=== PATIENT | male | born 1985 | race Caucasian/White ===

== ENCOUNTER 2018-10-17 09:39 | Emergency (ER) | payer MEDICARE ==
[2018-10-17 10:01] VITALS: RESP 18
--- NOTE | 2018-10-17 10:42 | XR ---
Right ankle and right foot HISTORY: Trauma and pain 3 views of the right ankle and 3 views of the right foot are submitted Bone mineralization is reduced which may limit sensitivity. There is soft tissue swelling present. Al ignment and joint spaces are maintained. IMPRESSION: No fracture or dislocation is evident. Follow-up as indicated.
--- NOTE | 2018-10-17 10:43 | ED ---
Lower Extremity Injury HPI - General Chief Complaint: Extremity Injury, Lower Stated Complaint: ankle/foot swelling & bruising Time Seen by Provider: 10/17/18 10:05 Source: patient Mode of arrival: wheelchair Limitations: no limitations - History of Present Illness Initial Comments: 33-year-old male with closed head injury in 1994, wheelchair-bound presenting today for chief complaint of right ankle swelling/bruising and pain. Family states the patient usually transfers weightbearing on his right lower extremity. They state Sunday they noticed swelling and mild bruising of the right ankle. They deny any specific trauma or falls. Patient states the area is mildly tender before meals the patient has a high pain tolerance. Patient since they noticed this injury has not been able to weight-bear and transfer as well as he usually does. Family was concerned there was a fracture and presented to an urgent care facility for evaluation. At the urgent care facility and imaging study was not performed and he was sent to the emergency department for further evaluation. Family denies history of blood clot, or clotting disorder. Patient is able to answer questions denying any chest pain, dyspnea, dyspnea on exertion he states he has some pain in the right ankle to palpation. Remaining review of systems negative. Upon arrival patient appears well no signs of acute distress. At baseline per family. - Related Data Home Medications Medication Instructions Recorded Confirmed Baclofen [Lioresal] 5 mg PO BID 10/17/18 10/17/18 Citalopram Hydrobromide [CeleXA] 10 mg PO HS 10/17/18 10/17/18 L.acidoph,Paracasei, B.lactis 1 cap PO Q48H 10/17/18 10/17/18 [Probiotic] Multivitamins, Thera [Multivitamin 1 tab PO DAILY 10/17/18 10/17/18 (formulary)] lamoTRIgine [LaMICtal] 100 mg PO BID 10/17/18 10/17/18 Allergies Allergy/AdvReac Type Severity Reaction Status Date / Time amoxicillin [From Augmentin] Allergy Nausea & Verified 10/17/18 10:35 Vomiting clavulanic acid Allergy Nausea & Verified 10/17/18 10:35 [From Augmentin] Vomiting sulfamethoxazole Allergy Nausea & Verified 10/17/18 10:35 [From Bactrim] Vomiting trimethoprim [From Bactrim] Allergy Nausea & Verified 10/17/18 10:35 Vomiting Review of Systems ROS Statement: Those systems with pertinent positive or pertinent negative responses have been documented in the HPI. ROS Other: All systems not noted in ROS Statement are negative. Past Medical History Past Medical History: Seizure Disorder Additional Past Medical History / Comment(s): closed head injury 1994 History of Any Multi-Drug Resistant Organisms: None Reported Additional Past Surgical History / Comment(s): Pin in right leg Past Psychological History: Depression Smoking Status: Never smoker Past Alcohol Use History: None Reported Past Drug Use History: None Reported General Exam - General Exam Comments Initial Comments: General: The patient is awake and alert, in no distress, and does not appear acutely ill. Eye: Pupils are equal, round and reactive to light, extra-ocular movements are intact. No nystagmus. There is normal conjunctiva bilaterally. No signs of icterus. Ears, nose, mouth and throat: There are moist mucous membranes and no oral lesions. Neck: The neck is supple, there is no tenderness or JVD. Cardiovascular: There is a regular rate and rhythm. No murmur, rub or gallop is appreciated. Respiratory: Lungs are clear to auscultation, respirations are non-labored, breath sounds are equal. No wheezes, stridor, rales, or rhonchi. Musculoskeletal: Patient is able to range at the ankles bilaterally. Denies tenderness of the left ankle admits tenderness of her ankle. There is no erythema. There is soft tissue swelling at the lateral and medial malleolus. Bruising along the medial aspect of foot. No warmth to palpation. Sensation intact. Radial and DP pulses equal bilaterally 2+. No pain patient of the knee. No pain to palpation of calf negative Homans sign Neurological: A&O x 3. Moving all 4 extremities. slouch posture. appropriate eye contact. Skin: Skin is warm and dry and no rashes or lesions are noted. Psychiatric: Cooperative, appropriate mood & affect, normal judgment. Limitations: no limitations Course Vital Signs 10/17/18 10/17/18 09:56 11:56 Temperature 97.6 F 98.4 F Pulse Rate 85 84 Respiratory 18 18 Rate Blood Pressure 123/84 133/110 O2 Sat by Pulse 92 L 98 Oximetry Medical Decision Making - Medical Decision Making 33-year-old male presenting for right ankle pain. Bruising appears symmetric. Patient does use right foot to transfer. Possible ligamentous injury suspected. Imaging studies revealed no acute osseous injury patient neurovascularly intact. Ultrasound obtained given no distinct injury with swelling of the right lower extremity. No evidence of DVT. At this time feel patient is stable for discharge with using his braces with lateral support using wheelchair and 5 orthopedic surgery. Family is agreeable plan at this time. Patient is discharged. At baseline discussed case with attending Danya who is agreeable with plan. Disposition Clinical Impression: Right ankle swelling, Traumatic ecchymosis of right ankle Disposition: HOME SELF-CARE Condition: Good Instructions (If sedation given, give patient instructions): Ankle Sprain (ED) Additional Instructions: Please use medication as discussed. Please follow-up with orthopedic surgery in the next 2-3 days. Please return to emergency room if the symptoms increase or worsen or for any other concerns, please use braces for transfers. Is patient prescribed a controlled substance at d/c from ED?: No Referrals: Marck Contreras DO [Primary Care Provider] - 1-2 days aJson Ken DO [Medical Doctor] - 1-2 days Time of Disposition: 11:45
--- NOTE | 2018-10-17 11:20 | US ---
EXAMINATION TYPE: US venous doppler duplex LE RT DATE OF EXAM: 10/17/2018 11:10 AM COMPARISON: NONE CLINICAL HISTORY: atraumatic swelling RLE. Right foot swelling and bruising SIDE PERFORMED: Right TECHNIQUE: The lower extremity deep venous system is examined utilizing real time linear array sonog [place] with graded compression, doppler sonography and color-flow sonography. VESSELS IMAGED: External Iliac Vein (EIV) Common Femoral Vein Deep Femoral Vein Greater Saphenous Vein * Femoral Vein Popliteal Vein Small Saphenous Vein * Proximal Calf Veins (* superficial vessels) Mentally challenged pt, moving leg during exam, difficult scan Right Leg: Negative for DVT Grayscale, color doppler, spectral doppler imaging performed of the deep veins of the right lower ext remity. There is normal flow, compressibility, vascular waveforms. IMPRESSION: No sonographic evidence of deep venous thrombosis within the right lower extremity.
[2018-10-17 11:57] VITALS: BP 133/110; PULSE 84; TEMP 98.4
== END 2018-10-17 11:56 | disposition home or self-care (01) ==
LOC: EC 09:39
DX: S90.01XA Contusion of right ankle, initial encounter (principal); Z99.3 Dependence on wheelchair; G40.909 Epilepsy, unspecified, not intractable, without status epilepticus; F32.9 Major depressive disorder, single episode, unspecified; Z79.899 Other long term (current) drug therapy; Z88.0 Allergy status to penicillin; Z88.1 Allergy status to other antibiotic agents; Z88.2 Allergy status to sulfonamides
CPT/HCPCS: 99284

== ENCOUNTER 2020-08-15 09:35 | Inpatient (IN) | payer OTHER, MEDICARE ==
[2020-08-15] MEDS ORDERED: SODIUM CHLORIDE 0.9% 1,000 ML IV STA (09:54)
[2020-08-15] MEDS ORDERED: LORazepam 2 MG/ML INJ IV STA (09:54)
--- NOTE | 2020-08-15 09:58 | ED ---
General Adult HPI - General Chief complaint: Seizure Stated complaint: seizure Time Seen by Provider: 08/15/20 09:45 Source: patient, family, EMS, RN notes reviewed, Caregiver Limitations: language barrier, altered mental status - History of Present Illness Initial comments: Patient is a pleasant 35-year-old male presenting to the emergency department with seizure. Seizure has been occurring more over the past couple of days, patient has partial seizures that have lasted up to an hour or more. Usually right-sided. Patient has vomited some. Patient is able to converse through these. Patient does have history of chronic seizures however this is much more than normal. Patient is on Lamictal. Patient is also on baclofen with increase dosing recently. No fevers or recent illness. Patient does have history of head injury at age 9 however no recent injuries. - Related Data Home Medications Medication Instructions Recorded Confirmed Baclofen [Lioresal] 5 mg PO TID@0730,1400,2200 10/17/18 08/15/20 Citalopram Hydrobromide [CeleXA] 10 mg PO HS 10/17/18 08/15/20 Multivitamins, Thera [Multivitamin 1 tab PO DAILY 10/17/18 08/15/20 (formulary)] lamoTRIgine [LaMICtal] 100 mg PO BID 10/17/18 08/15/20 Ascorbic Acid [Vitamin C] 500 mg PO DAILY 08/15/20 08/15/20 Vitamin B Complex 1 cap PO DAILY 08/15/20 08/15/20 Allergies Allergy/AdvReac Type Severity Reaction Status Date / Time amoxicillin [From Augmentin] Allergy Nausea & Verified 08/15/20 12:18 Vomiting clavulanic acid Allergy Nausea & Verified 08/15/20 12:18 [From Augmentin] Vomiting sulfamethoxazole Allergy Nausea & Verified 08/15/20 12:18 [From Bactrim] Vomiting trimethoprim [From Bactrim] Allergy Nausea & Verified 08/15/20 12:18 Vomiting Review of Systems ROS Statement: Those systems with pertinent positive or pertinent negative responses have been documented in the HPI. ROS Other: All systems not noted in ROS Statement are negative. Constitutional: Denies: fever Eyes: Denies: eye pain ENT: Denies: ear pain Respiratory: Denies: cough, dyspnea Cardiovascular: Denies: chest pain Endocrine: Denies: fatigue Gastrointestinal: Denies: abdominal pain Genitourinary: Denies: dysuria Musculoskeletal: Denies: back pain Skin: Denies: rash Neurological: Denies: headache, weakness Past Medical History Past Medical History: Seizure Disorder Additional Past Medical History / Comment(s): closed head injury 1994 History of Any Multi-Drug Resistant Organisms: None Reported Additional Past Surgical History / Comment(s): Pin in right leg Past Psychological History: Depression Smoking Status: Never smoker Past Alcohol Use History: None Reported Past Drug Use History: None Reported General Exam Limitations: language barrier, altered mental status General appearance: alert, in no apparent distress, other (Patient does have some abnormal movement and spasm of the right upper extremity.) Head exam: Present: atraumatic Eye exam: Present: normal appearance, nystagmus Neck exam: Present: normal inspection. Absent: tenderness, meningismus Respiratory exam: Present: normal lung sounds bilaterally Cardiovascular Exam: Present: regular rate, normal rhythm GI/Abdominal exam: Present: soft. Absent: tenderness Extremities exam: Present: normal inspection. Absent: pedal edema, calf tenderness Neurological exam: Present: alert. Absent: motor sensory deficit Psychiatric exam: Present: normal affect, normal mood Skin exam: Present: normal color Course Vital Signs 08/15/20 08/15/20 08/15/20 09:42 09:49 10:00 Temperature 100.4 F H Pulse Rate 74 Respiratory 20 Rate Blood Pressure 156/110 156/110 156/110 O2 Sat by Pulse 100 98 Oximetry 08/15/20 08/15/20 08/15/20 10:51 11:00 11:51 Temperature 97.7 F Pulse Rate 92 Respiratory 18 18 Rate Blood Pressure 128/117 118/99 O2 Sat by Pulse 97 95 Oximetry 08/15/20 12:00 Temperature Pulse Rate 86 Respiratory 18 Rate Blood Pressure 118/99 O2 Sat by Pulse 96 Oximetry EKG Findings - EKG Comments: EKG Findings:: Normal sinus rhythm at a rate of 97. AK 138. QRS 88. QT 332. QTC 421. Normal axis. Normal QRS. No acute ST change. Medical Decision Making - Medical Decision Making Patient reevaluated and significantly improved. No seizure activity or vomiting since Ativan. Patient and family updated. Case discussed with Dr. cerda twice who will admit. He does want to discuss case with neurology. Case was dis cussed with Dr. Wells, who would like to make the level increased to 100 and the morning and 150 in the evening and he will consult. Also request Lamictal level which was arty added. - Lab Data Result diagrams: 08/15/20 10:16 08/15/20 10:16 Lab Results 08/15/20 08/15/20 08/15/20 Range/Units 10:16 10:16 10:55 WBC 7.0 (3.8-10.6) k/uL RBC 5.03 (4.30-5.90) m/uL Hgb 13.5 (13.0-17.5) gm/dL Hct 40.7 (39.0-53.0) % MCV 81.0 (80.0-100.0) fL MCH 26.9 (25.0-35.0) pg MCHC 33.2 (31.0-37.0) g/dL RDW 13.7 (11.5-15.5) % Plt Count 279 (150-450) k/uL MPV 7.2 Neutrophils % 56 % Lymphocytes % 30 % Monocytes % 5 % Eosinophils % 6 % Basophils % 0 % Neutrophils # 3.9 (1.3-7.7) k/uL Lymphocytes # 2.1 (1.0-4.8) k/uL Monocytes # 0.4 (0-1.0) k/uL Eosinophils # 0.5 (0-0.7) k/uL Basophils # 0.0 (0-0.2) k/uL Sodium 140 (137-145) mmol/L Potassium 4.2 (3.5-5.1) mmol/L Chloride 104 (98-107) mmol/L Carbon Dioxide 27 (22-30) mmol/L Anion Gap 9 mmol/L BUN 13 (9-20) mg/dL Creatinine 0.63 L (0.66-1.25) mg/dL Est GFR (CKD-EPI)AfAm >90 (>60 ml/min/1.73 sqM) Est GFR (CKD-EPI)NonAf >90 (>60 ml/min/1.73 sqM) Glucose 95 (74-99) mg/dL Calcium 9.1 (8.4-10.2) mg/dL Total Bilirubin 0.4 (0.2-1.3) mg/dL AST 30 (17-59) U/L ALT 22 (4-49) U/L Alkaline Phosphatase 51 (38-126) U/L Total Protein 6.6 (6.3-8.2) g/dL Albumin 4.0 (3.5-5.0) g/dL Urine Color Yellow Urine Appearance Clear (Clear) Urine pH 6.5 (5.0-8.0) Ur Specific [place] 1.029 (1.001-1.035) Urine Protein Trace H (Negative) Urine Glucose (UA) Negative (Negative) Urine Ketones Negative (Negative) Urine Blood Negative (Negative) Urine Nitrite Negative (Negative) Urine Bilirubin Negative (Negative) Urine Urobilinogen <2.0 (<2.0) mg/dL Ur Leukocyte Esterase Negative (Negative) Coronavirus (PCR) (Not Detectd) 08/15/20 Range/Units 12:04 WBC (3.8-10.6) k/uL RBC (4.30-5.90) m/uL Hgb (13.0-17.5) gm/dL Hct (39.0-53.0) % MCV (80.0-100.0) fL MCH (25.0-35.0) pg MCHC (31.0-37.0) g/dL RDW (11.5-15.5) % Plt Count (150-450) k/uL MPV Neutrophils % % Lymphocytes % % Monocytes % % Eosinophils % % Basophils % % Neutrophils # (1.3-7.7) k/uL Lymphocytes # (1.0-4.8) k/uL Monocytes # (0-1.0) k/uL Eosinophils # (0-0.7) k/uL Basophils # (0-0.2) k/uL Sodium (137-145) mmol/L Potassium (3.5-5.1) mmol/L Chloride (98-107) mmol/L Carbon Dioxide (22-30) mmol/L Anion Gap mmol/L BUN (9-20) mg/dL Creatinine (0.66-1.25) mg/dL Est GFR (CKD-EPI)AfAm (>60 ml/min/1.73 sqM) Est GFR (CKD-EPI)NonAf (>60 ml/min/1.73 sqM) Glucose (74-99) mg/dL Calcium (8.4-10.2) mg/dL Total Bilirubin (0.2-1.3) mg/dL AST (17-59) U/L ALT (4-49) U/L Alkaline Phosphatase (38-126) U/L Total Protein (6.3-8.2) g/dL Albumin (3.5-5.0) g/dL Urine Color Urine Appearance (Clear) Urine pH (5.0-8.0) Ur Specific [place] (1.001-1.035) Urine Protein (Negative) Urine Glucose (UA) (Negative) Urine Ketones (Negative) Urine Blood (Negative) Urine Nitrite (Negative) Urine Bilirubin (Negative) Urine Urobilinogen (<2.0) mg/dL Ur Leukocyte Esterase (Negative) Coronavirus (PCR) Not Detected (Not Detectd) - Radiology Data Radiology results: report reviewed (Computed tomography scan of the brain shows old infarct. Prior surgery. No acute hemorrhage or shift.), image reviewed (Chest x-ray shows low lung volumes, cannot rule out cardiomegaly or vascular congestion) Disposition Clinical Impression: Status epilepticus Disposition: ADMITTED IP TO THIS HOSP Is patient prescribed a controlled substance at d/c from ED?: No Referrals: Marck Contreras DO [Primary Care Provider] - 1-2 days Decision Time: 13:04
[2020-08-15 10:26] LABS: Basophils % (A) 0 %; Eosinophils # (A) 0.5 k/uL (0-0.7); Eosinophils % (A) 6 %; HCT 40.7 % (39.0-53.0); HGB 13.5 gm/dL (13.0-17.5); Lymphocytes # (A) 2.1 k/uL (1.0-4.8); Lymphocytes % (A) 30 %; MCH 26.9 pg (25.0-35.0); MCHC 33.2 g/dL (31.0-37.0); Mean Platelet Volume 7.2; Monocytes # (A) 0.4 k/uL (0-1.0); Monocytes % (A) 5 %; Neutrophils # (A) 3.9 k/uL (1.3-7.7); Neutrophils % (A) 56 %; Platelet Count 279 k/uL (150-450); RBC 5.03 m/uL (4.30-5.90); RDW 13.7 % (11.5-15.5)
[2020-08-15 10:39] LABS: ALT 22 U/L (4-49); AST 30 U/L (17-59); African American GFR (CKD) >90 (>60 ml/min/1.73 sqM); Alkaline Phosphatase 51 U/L (38-126); Anion Gap 9 mmol/L; Blood Urea Nitrogen 13 mg/dL (9-20); Calcium 9.1 mg/dL (8.4-10.2); Carbon Dioxide 27 mmol/L (22-30); Chloride 104 mmol/L (98-107); Glucose 95 mg/dL (74-99); Non-African American GFR(CKD) >90 (>60 ml/min/1.73 sqM); Potassium 4.2 mmol/L (3.5-5.1); Sodium 140 mmol/L (137-145); Total Bilirubin 0.4 mg/dL (0.2-1.3); Total Protein 6.6 g/dL (6.3-8.2)
[2020-08-15 11:07] LABS: Appearance,Urine Clear (Clear); Bilirubin,Urine Negative (Negative); Blood,Urine Negative (Negative); Color,Urine Yellow; Glucose,Urine (UA) Negative (Negative); Ketones,Urine Negative (Negative); Leukocyte Esterase,Urine Negative (Negative); Nitrite,Urine Negative (Negative); PH, Urine 6.5 (5.0-8.0); Protein,Urine Trace (Negative); Specific Gravity,Urine 1.029 (1.001-1.035); Urobilinogen,Urine <2.0 mg/dL (<2.0)
--- NOTE | 2020-08-15 11:53 | XR ---
EXAMINATION TYPE: XR chest 2V DATE OF EXAM: 08/15/2020 COMPARISON: NONE HISTORY: Seizure. Weakness. TECHNIQUE: Frontal and lateral views of the chest are obtained. FINDINGS: There are markedly reduced lung volumes noted. Heart size mildly enlarged. Mild to moderat e central opacities or vascular congestion. No pleural effusion or pneumothorax. Underlying scoliotic curvature or positioning. IMPRESSION: Low lung volumes and/or poor inspiration. Cardiomegaly with mild to moderate central vas cular congestion may be exaggerated by former.
--- NOTE | 2020-08-15 11:55 | CT ---
EXAMINATION TYPE: CT brain wo con DATE OF EXAM: 08/15/2020 COMPARISON: None. HISTORY: seizure CT DLP: 1217.4 mGycm. Automated Exposure Control for Dose Reduction was Utilized. TECHNIQUE: CT scan of the head is performed without contrast. FINDINGS: There is no acute intracranial hemorrhage or midline shift identified. Mild ventricular a nd sulcal prominence especially for patient's age. Old infarct left basal ganglia extending into the external capsule . Prominent soft tissue density deep right external auditory canal presumed cerumen, correlate clinically. High right parietal paul hole with adjacent extra-axial calcifications. The gl obes are intact and the visualized sinuses are clear. IMPRESSION: No acute intracranial hemorrhage or midline shift is seen. Evidence of prior surgery. Mi ld diffuse cerebral atrophy. 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
[2020-08-15] MEDS ORDERED: NALOXONE 0.4 MG/ML 1 ML VIAL IV PRN (13:05)
[2020-08-15] MEDS ORDERED: LORazepam 2 MG/ML INJ IV PRN (13:07)
[2020-08-15] MEDS: SODIUM CHLORIDE 0.9% 1,000 ML IV SCH (17:55)
[2020-08-15] MEDS ORDERED: FUROSEMIDE 10 MG/ML 2 ML VIAL IV ONE (20:51)
[2020-08-15] MEDS ORDERED: lamoTRIgine 100 MG TAB PO SCH (21:00)
[2020-08-15] MEDS: BACLOFEN 10 MG TAB PO SCH (21:27)
[2020-08-15] MEDS: CITALOPRAM HYDROBROMIDE 10 MG TAB PO SCH (21:28)
--- NOTE | 2020-08-15 23:06 | HP ---
HISTORY AND PHYSICAL DATE OF SERVICE: 08/15/2020. CHIEF COMPLAINT: Seizure disorder. HISTORY OF PRESENT ILLNESS: This 55-year-old gentleman with a past medical history of closed-head injury, history of seizure disorder since 1994, history of depression, being followed by Dr. Marck Contreras in the outpatient setting, saw a neurologist Dr. Calvillo about a week ago. Apparently the dose of gabapentin was also being adjusted by the rehab physician at [facility]. Today the patient was taken to [facility] with complaints of multiple seizures which are occurring more frequently. The patient also had some vomiting. The patient also had history of some shortness of breath and patient came to [facility] and admitted for evaluation and treatment. Evaluation showed normal CBC. Creatinine 0.63 and Covid-19 was negative. A chest x- ray which was done in the ER and which was reviewed personally by me showed suspected aspiration lower limb and cardiomegaly with some vascular congestion was also noted. The patient admitted for further evaluation and treatment. CT scan of the brain was also reviewed personally by me showed no acute intracranial hemorrhage, evidence of previous surgery and mild diffuse cerebral atrophy is also noted with old left-sided infarct. The patient unable to give a coherent history. Most of the history is taken from my discussion with the family at the bedside and as well as discussions with staff and review of the charts. There is no history of any fever, rigors. No history of trauma. PAST MEDICAL HISTORY: History of seizure disorder, close head injury. MEDICATIONS ARE: Lamictal 100 mg b.i.d., vitamin B6, Lioresal. Vitamin C, multivitamins, Celexa. Doses are noted. ALLERGIES: AMOXICILLIN, CLAVULANIC ACID AND BACTRIM. FAMILY HISTORY: No history of heart disease or strokes in the family. Social history, review of systems could not be taken because of the change in mental status. PHYSICAL EXAMINATION: Patient is stuporous. Pulse is 84, blood pressure 118/95, respiration 18, temperature 98 degrees, pulse ox 98% on room air. HEENT: Conjunctivae normal. NECK: No JVD. CARDIOVASCULAR: S1, S2. RESPIRATORY: Breath sounds diminished in the bases. Scattered rhonchi and crackles. ABDOMEN: Soft, obese, nontender. No mass. LEGS: No edema. No swelling. NERVOUS SYSTEM: Higher functions as mentioned earlier. Moves all 4 limbs. Full exam cannot be carried out. SKIN: No ulcers, no rashes and no bleeding. JOINTS: No active deformity arthropathy. LYMPHATICS: No lymph nodes palpable in the neck, axillae or groin. LABS: At this time, CBC within normal limits. Creatinine is 0.63, UA noted. Covid 19 is negative. ASSESSMENT: 1. Seizure disorder and breakthrough seizures. Rule out status epilepticus. 2. History of closed-head injury. 3. History of seizure disorder. 4. History of depression. 5. Rule out congestive heart failure and cardiomegaly. 6. Possible aspiration pneumonia. RECOMMENDATION: This 35-year-old gentleman who presented with multiple complex medical issues, we will monitor the patient closely, continue the current management and symptomatic treatment. Otherwise, at this time, I would recommend Neurology consultation. Also recommend basic cardiac evaluation including 2D echo and as well as BNP. We will limit the fluids and we will also give a single dose of Lasix. Other than that, empiric antibiotics also will be recommended. Prognosis guarded because of multiple complex medical issues. Further recommendations to follow . A copy of dictation being forwarded to Dr. Marck Contreras, who is the primary physician. MMODL / IJN: [id number] /
[2020-08-15] MEDS: AZTREONAM 2 GM in SODIUM CHLORIDE 0.9% 100 ML IVPB SCH (23:57)
[2020-08-16] MEDS: MULTIVITAMINS, THERA 1 EACH TAB PO SCH (07:54)
[2020-08-16] MEDS: AZTREONAM 2 GM in SODIUM CHLORIDE 0.9% 100 ML IVPB SCH (07:54)
[2020-08-16] MEDS: BACLOFEN 10 MG TAB PO SCH ×3 (07:54→21:40)
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
[2020-08-16] MEDS ORDERED: lamoTRIgine 100 MG TAB PO SCH ×2 (09:00)
[2020-08-16] MEDS ORDERED: NON FORMULARY DRUG (Vitamin B Complex [Vitamin B Complex] 1 EACH Capsule) PO SCH (09:00)
[2020-08-16] MEDS: lamoTRIgine 25 MG TAB PO SCH ×2 (09:17→20:19)
--- NOTE | 2020-08-16 10:40 | XR ---
EXAMINATION TYPE: XR chest 1V portable DATE OF EXAM: 08/16/2020 Comparison: 08/15/2020 Clinical History: 35-year-old male CHF Findings: Low lung volumes and crowded vascular markings. Heart is mildly enlarged. No priyank consolidation or s izable effusion on the frontal view. Impression: Borderline to mild cardiomegaly. Hypoventilatory changes with very low lung volumes. Vascular crowdin g could be secondary to the low lung volumes or mild pulmonary vascular congestion. No priyank pulmonar y edema at this time.
--- NOTE | 2020-08-16 11:31 | P.CRDCN ---
History of Present Illness Consult date: 08/16/20 History of present illness: CHIEF COMPLAINT: Congestive heart failure HISTORY OF PRESENT ILLNESS: This is a 35-year-old male with a past medical history significant for closed head injury and seizure disorder. 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 We have been asked to see the patient in consultation for congestive heart failure. Patient examined this morning at the bedside. Mother is present and providing the majority of the patient's history. Patient was brought to the hospital secondary to seizure activity. The patient was having emesis with his seizures which concerned his mother and prompted his visit to the emergency room. The patient currently denies chest pain or pressure. Denies shortness of breath. Patient had a chest x-ray completed revealing low lung volumes and/or poor inspiration. Cardiomegaly with mild to moderate central vascular congestion. BNP was 11. Patient was given a dose of IV lasix per internal medicine yesterday. DIAGNOSTICS: EKG reveals sinus mechanism with no signs of acute ischemia Chest xray Cardiomegaly with mild to moderate central vascular congestion Laboratory data: WBC 7.0. Hemoglobin 13.5. Platelet count 279. Sodium 140. Potassium 4.2. BUN 13. Creatinine 0.63. Magnesium 1.8. BNP 11. Troponin negative 1. Current home cardiac medications include none REVIEW OF SYSTEMS: At the time of my exam: CONSTITUTIONAL: Denies fever or chills. HEENT: Denies blurred vision, vision changes, or eye pain. Denies hemoptysis CARDIOVASCULAR: Denies chest pain, orthopnea, PND or palpitations RESPIRATORY: No shortness of breath. GASTROINTESTINAL: Denies abdominal pain. Denies nausea or vomiting. HEMATOLOGIC: Denies bleeding disorders. GENITOURINARY: Denies any blood in urine. SKIN: Denies pruitis. Denies rash. PHYSICAL EXAM: VITAL SIGNS: Reviewed. GENERAL: Well-developed in no acute distress. HEENT: Head is normocephalic. Pupils are equal, round. Sclerae anicteric. Mucous membranes of the mouth are moist. Neck supple. No JVD or thyromegaly LUNGS: Respirations even and unlabored. Lungs essentially clear to auscultation bilaterally, diminished. No crackles auscultated. HEART: Regular rate and rhythm. S1 and S2 heard. ABDOMEN: Soft. Nondistended. Nontender. EXTREMITIES: Normal range of motion. No clubbing or cyanosis. Peripheral pulses intact. No lower extremity edema NEUROLOGIC: Awake and alert. Oriented x 2. ASSESSMENT: Recurrent seizures Closed head injury Congestive heart failure, ruled out, BNP 11 PLAN: Obtain 2D echo to assess cardiac structure and function No need for diuretics as patient is currently euvolemic Neurology following for seizures Further recommendations pending patient course Nurse practitioner note has been reviewed by physician. Signing provider agrees with the documented findings, assessment, and plan of care. Past Medical History Past Medical History: Seizure Disorder Additional Past Medical History / Comment(s): closed head injury 1994 History of Any Multi-Drug Resistant Organisms: None Reported Additional Past Surgical History / Comment(s): Pin in right leg Past Psychological History: Depression Smoking Status: Never smoker Past Alcohol Use History: None Reported Past Drug Use History: None Reported Medications and Allergies Home Medications Medication Instructions Recorded Confirmed Type Baclofen [Lioresal] 5 mg PO TID@0730,1400,2200 10/17/18 08/15/20 History Citalopram Hydrobromide [CeleXA] 10 mg PO HS 10/17/18 08/15/20 History Multivitamins, Thera [Multivitamin 1 tab PO DAILY 10/17/18 08/15/20 History (formulary)] lamoTRIgine [LaMICtal] 100 mg PO BID 10/17/18 08/15/20 History Ascorbic Acid [Vitamin C] 500 mg PO DAILY 08/15/20 08/15/20 History Vitamin B Complex 1 cap PO DAILY 08/15/20 08/15/20 History Allergies Allergy/AdvReac Type Severity Reaction Status Date / Time amoxicillin [From Augmentin] Allergy Nausea & Verified 08/15/20 12:18 Vomiting clavulanic acid Allergy Nausea & Verified 08/15/20 12:18 [From Augmentin] Vomiting sulfamethoxazole Allergy Nausea & Verified 08/15/20 12:18 [From Bactrim] Vomiting trimethoprim [From Bactrim] Allergy Nausea & Verified 08/15/20 12:18 Vomiting Physical Exam Vitals: Vital Signs Temp Pulse Pulse Pulse Resp BP BP 08/16/20 10:34 08/16/20 05:00 97.5 F L 97 16 120/82 08/15/20 20:00 98.1 F 112 H 16 136/85 08/15/20 17:26 82 18 08/15/20 15:09 98.0 F 84 18 118/90 08/15/20 15:00 80 20 134/90 08/15/20 14:22 98.7 F 82 18 125/87 08/15/20 14:00 84 20 116/88 08/15/20 13:00 86 18 124/82 08/15/20 12:00 86 18 118/99 08/15/20 11:51 97.7 F 92 18 118/99 Pulse Ox 08/16/20 10:34 94 L 08/16/20 05:00 94 L 08/15/20 20:00 93 L 08/15/20 17:26 08/15/20 15:09 99 08/15/20 15:00 08/15/20 14:22 98 08/15/20 14:00 08/15/20 13:00 08/15/20 12:00 96 08/15/20 11:51 95 Intake and Output 08/15/20 08/16/20 08/16/20 22:59 06:59 14:59 Intake Total 800 1270 Output Total 725 400 Balance 75 870 Intake: Intake, IV Titration 600 200 Amount Aztreonam 2 gm In Sodium 100 Chloride 0.9% 100 ml @ 33 .3 mls/hr IVPB Q8HR SARAH Rx#:[id number] Sodium Chloride 0.9% 1, 100 000 ml @ 20 mls/hr IV . Q24H SARAH Rx#:[id number] Sodium Chloride 0.9% 1, 600 000 ml @ 75 mls/hr IV . [id number] STA Rx#:[id number] Oral 200 1070 Output: Urine 725 400 Other: Voiding Method Urinal Urinal # Voids 2 Results 08/15/20 10:16 08/15/20 10:16 Cardiac Enzymes 08/15/20 Range/Units 21:11 Troponin I <0.012 (0.000-0.034) ng/mL Current Medications Generic Name Dose Route Start Last Admin Trade Name Freq PRN Reason Stop Dose Admin Baclofen 5 mg 08/15/20 22:00 08/16/20 07:54 Baclofen 10 Mg Tab PO 5 mg TID@0730,1400,2200 SARAH Administration Citalopram Hydrobromide 10 mg 08/15/20 21:00 08/15/20 21:28 Citalopram Hydrobromide 10 Mg Tab PO 10 mg HS SARAH Administration Sodium Chloride 1,000 mls @ 20 mls/hr 08/15/20 13:15 08/15/20 17:55 Saline 0.9% IV Not Given .Q24H SARAH Aztreonam 2 gm/ Sodium 100 mls @ 33.3 mls/hr 08/16/20 00:00 08/16/20 07:54 Chloride IVPB 33.3 mls/hr Q8HR SARHA Administration Protocol Lamotrigine 25 mg 08/16/20 09:00 08/16/20 09:17 Lamotrigine 25 Mg Tab PO 25 mg BID SARAH Administration Lamotrigine 100 mg 08/16/20 21:00 Lamotrigine 100 Mg Tab PO BID SARAH Lorazepam 1 mg 08/15/20 13:07 Lorazepam 2 Mg/Ml Inj IV Q4H PRN Seizures Multivitamins 1 each 08/16/20 09:00 08/16/20 07:54 Multivitamins, Thera 1 Each Tab PO 1 each DAILY SARAH Administration Naloxone HCl 0.2 mg 08/15/20 13:05 Naloxone 0.4 Mg/Ml 1 Ml Vial IV Q2M PRN Opioid Reversal Intake and Output 08/15/20 08/16/20 08/16/20 22:59 06:59 14:59 Intake Total 800 1270 Output Total 725 400 Balance 75 870 Intake: Intake, IV Titration 600 200 Amount Aztreonam 2 gm In Sodium 100 Chloride 0.9% 100 ml @ 33 .3 mls/hr IVPB Q8HR SARAH Rx#:[id number] Sodium Chloride 0.9% 1, 100 000 ml @ 20 mls/hr IV . Q24H SARAH Rx#:[id number] Sodium Chloride 0.9% 1, 600 000 ml @ 75 mls/hr IV . [id number] STA Rx#:[id number] Oral 200 1070 Output: Urine 725 400 Other: Voiding Method Urinal Urinal # Voids 2 08/15/20 10:16 08/15/20 10:16
[2020-08-16] MEDS: SODIUM CHLORIDE 0.9% 1,000 ML IV SCH (14:04)
--- NOTE | 2020-08-16 14:40 | P.CNPUL ---
History of Present Illness Consult date: 08/16/20 Reason for consult: pneumonia History of present illness: Visit 35-year-old male patient with known history of positive injury at the age of 9. At that time, the patient had a serious injury requiring long-term intubation mechanical ventilation the patient also required a tracheostomy tube insertion. Since then, the patient also developed an epilepsy disorder. The patient was brought in yesterday to the emergency department after having recurrent bouts of seizures starting Sunday which is 2 days ago. The patient was having jerks focally involving the upper and lower extremity without losing complete consciousness. On Sunday, he felt better and on Sunday he started developing ongoing seizure activity and during the process he was seizing around 3-5 minutes at a time and he would stop and the mother noted that he would have had some aspiration. The patient takes Lamictal 100 mg by mouth twice a day and in the emergency department he was given a milligram of Ativan. Currently is awake. He is able to follow some simple commands. He does have a weak cough. No previous aspiration. No previous pneumonias. His chest x-ray is showing smaller lung volumes and there is a suspicion for diaphragmatic weakness/paralysis 9 in the lung volumes are small and the diaphragms are settings high in the chest. Neurology has been evaluating this patient regarding seizure activity. The patient has had definitive disease with other antiepileptic medications the patient was kept on Lamictal for now and the dose was modified. 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 The white cell count was at 7 with a glucose of 95 and a calcium level of 9.1 and the liver function tests were normal, UA was negative and the COVID 19 testing was also negative by PCR. Review of Systems Constitutional: Reports fever, Reports weakness Eyes: denies as per HPI, denies blurred vision, denies bulging eye, denies decreased vision, denies diplopia, denies discharge, denies dry eye, denies irritation, denies itching, denies pain, denies photophobia, denies loss of peripheral vision, denies loss of vision, denies tunnel vision/blind spots Ears: deny: decreased hearing, ear discharge, earache, tinnitus Ears, nose, mouth and throat: Denies headache, Denies sore throat Breasts: absent: as per HPI, gynecomastia Respiratory: Reports as per HPI, Reports cough, Reports dyspnea, Reports excessive sputum Gastrointestinal: Reports as per HPI Genitourinary: Reports as per HPI Musculoskeletal: Reports gait dysfunction, Reports limitation of motion, Reports muscle weakness Musculoskeletal: absent: ankle pain, ankle stiffness, ankle swelling Integumentary: Reports as per HPI Neurological: Reports ataxia, Reports balance difficulties, Reports change in mentation, Reports gait dysfunction, Reports head injury, Reports lack of coordination, Reports motor disturbance, Reports seizures, Reports spasticity, Reports weakness Psychiatric: Reports as per HPI Endocrine: Reports as per HPI, Reports fatigue Hematologic/Lymphatic: Reports as per HPI Allergic/Immunologic: Reports as per HPI Past Medical History Past Medical History: Seizure Disorder Additional Past Medical History / Comment(s): closed head injury 1994, previous history of tracheostomy tube insertion and subsequent removal, obesity with a BMI of 35.2, cognitive impairments and 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 History of Any Multi-Drug Resistant Organisms: None Reported Additional Past Surgical History / Comment(s): Pin in right leg Past Psychological History: Depression Smoking Status: Never smoker Past Alcohol Use History: None Reported Past Drug Use History: None Reported Medications and Allergies Home Medications Medication Instructions Recorded Confirmed Type Baclofen [Lioresal] 5 mg PO TID@0730,1400,2200 10/17/18 08/15/20 History Citalopram Hydrobromide [CeleXA] 10 mg PO HS 10/17/18 08/15/20 History Multivitamins, Thera [Multivitamin 1 tab PO DAILY 10/17/18 08/15/20 History (formulary)] lamoTRIgine [LaMICtal] 100 mg PO BID 10/17/18 08/15/20 History Ascorbic Acid [Vitamin C] 500 mg PO DAILY 08/15/20 08/15/20 History Vitamin B Complex 1 cap PO DAILY 08/15/20 08/15/20 History Allergies Allergy/AdvReac Type Severity Reaction Status Date / Time amoxicillin [From Augmentin] Allergy Nausea & Verified 08/15/20 12:18 Vomiting clavulanic acid Allergy Nausea & Verified 08/15/20 12:18 [From Augmentin] Vomiting sulfamethoxazole Allergy Nausea & Verified 08/15/20 12:18 [From Bactrim] Vomiting trimethoprim [From Bactrim] Allergy Nausea & Verified 08/15/20 12:18 Vomiting Physical Exam Vitals: Vital Signs Temp Pulse Pulse Pulse Resp BP BP 08/16/20 12:06 99 F 52 L 17 112/81 08/16/20 10:34 08/16/20 05:00 97.5 F L 97 16 120/82 08/15/20 20:00 98.1 F 112 H 16 136/85 08/15/20 17:26 82 18 08/15/20 15:09 98.0 F 84 18 118/90 08/15/20 15:00 80 20 134/90 08/15/20 14:22 98.7 F 82 18 125/87 08/15/20 14:00 84 20 116/88 Pulse Ox 08/16/20 12:06 96 08/16/20 10:34 94 L 08/16/20 05:00 94 L 08/15/20 20:00 93 L 08/15/20 17:26 08/15/20 15:09 99 08/15/20 15:00 08/15/20 14:22 98 08/15/20 14:00 Intake and Output 08/15/20 08/16/20 08/16/20 22:59 06:59 14:59 Intake Total 800 1270 Output Total 725 400 Balance 75 870 Intake: Intake, IV Titration 600 200 Amount Aztreonam 2 gm In Sodium 100 Chloride 0.9% 100 ml @ 33 .3 mls/hr IVPB Q8HR [facility] Rx#:[id number] Sodium Chloride 0.9% 1, 100 000 ml @ 20 mls/hr IV . Q24H [facility] Rx#:[id number] Sodium Chloride 0.9% 1, 600 000 ml @ 75 mls/hr IV . [id number] [facility] Rx#:[id number] Oral 200 1070 Output: Urine 725 400 Other: Voiding Method Urinal Urinal # Voids 2 Obese and, comfortable, not in acute respiratory distress, BMI 35.2 Head exam was generally normal. There was no scleral icterus or corneal arcus. Mucous membranes were moist. Neck was supple and without jugular venous distension, thyromegaly, or carotid bruits. Carotids were easily palpable bilaterally. There was no adenopathy. Patient has significant crowding of the posterior oropharynx with a Mallampati class IV Lungs sounds are diminished in lung base bilaterally and the patient's inspiratory efforts are quite weak and the breath sounds are overall diminished throughout the lung hooker. Cardiac exam revealed the PMI to be normally situated and sized. The rhythm was regular and no extrasystoles were noted during several minutes of auscultation. The first and second heart sounds were normal and physiologic splitting of the second heart sound was noted. There were no murmurs, rubs, clicks, or gallops. Abdominal exam revealed normal bowel sounds. The abdomen was soft, non-tender, and without masses, organomegaly, or appreciable enlargement of the abdominal aorta. Examination of the extremities revealed easily palpable radial, femoral and pedal pulses. There was no cyanosis, clubbing or edema. Examination of the skin revealed no evidence of significant rashes, suspicious appearing nevi or other concerning lesions. Neurologically, the patient is awake and alert and the patient has chronic contractures in all 4 extremities and chronic spasticity. Results - Laboratory Findings CBC and BMP: 08/15/20 10:16 08/15/20 10:16 Abnormal lab findings: Abnormal Labs 08/15/20 08/15/20 10:16 10:55 Creatinine 0.63 L Urine Protein Trace H - Diagnostic Findings Chest x-ray: image reviewed Assessment and Plan Plan: 1 aspiration suspected. Nevertheless, the patient has signs of chronic respiratory insufficiency. The chest x-ray shows smaller lung volumes with elevation of the diaphragms bilaterally, and this obviously raises the concern for diaphragmatic paralysis bilaterally and chronic respiratory insufficiency. The patient has a very weak cough. The patient's chest x-ray does not reveal any acute pulmonary infection or pneumonia. The patient was febrile and the patient was covered with antibiotics and the patient was given aztreonam. 2 history of closed head injury 3 history of chronic respiratory failure post closed head injury and the patient required insertion and removal of tracheostomy tube 4 history of epilepsy post closed head injury and the patient was hospitalized for breakthrough seizures 5 obesity. plan Aspiration precautions Swallow evaluation Put the patient on Levaquin 500 milligrams by mouth. Discontinue the aztreonam The choice of the antibiotic was made based on the patient's ALLERGIES. Neurology in regards to ongoing seizure activity. Lamictal was And the dose was modified Monitor the fever pattern Repeat chest x-ray with next 24-48 hours
[2020-08-16] MEDS: LEVOFLOXACIN 500MG-D5W PMX 500 MG in DEXTROSE/WATER 1 100ML.BAG IVPB SCH (15:21)
[2020-08-16] MEDS: lamoTRIgine 100 MG TAB PO SCH (20:19)
[2020-08-16] MEDS: CITALOPRAM HYDROBROMIDE 10 MG TAB PO SCH (20:20)
--- NOTE | 2020-08-16 20:46 | PN ---
PROGRESS NOTE DATE OF SERVICE: 08/16/2020 This 35-year-old gentleman who was admitted with recurrent seizures also had possibly bilateral pneumonia. CHF seems to be unlikely. Cardiology has also seen the patient. The BNP is unremarkable. Pulmonary has also seen the patient. Patient is on empiric antibiotics. Neurology evaluation is also in progress. Patient continues to be unresponsive. Patient has some normal movements. Most of the history is taken from my discussion with the family at the bedside. The patient also has a history of closed- head injury. Past medical history reviewed. Review of systems could not be taken. CURRENT MEDICATIONS: Reviewed. They include Lioresal, Celexa, Lamictal, Levaquin, Ativan. PHYSICAL EXAMINATION: The patient is noncommunicative, nonverbal. Pulse is 52, blood pressure 112/81, respiration 17, temperature 99 degrees, pulse ox 96% on 2 L. HEENT: Conjunctivae normal. NECK: No jugular venous distention. CARDIOVASCULAR SYSTEM: S1, S2 muffled. RESPIRATORY SYSTEM: Breath sounds diminished at the bases. A few scattered rhonchi. No crackles. ABDOMEN: Soft, non-tender. LEGS: No edema. No swelling. NERVOUS SYSTEM: No focal deficit. LABS: CBC and BMP noted. ASSESSMENT: 1. Acute seizure disorder with breakthrough seizures, possibly status epilepticus. 2. Possible bilateral aspiration pneumonia. 3. History of closed-head injury. 4. Seizure disorder. 5. History of depression. 6. Congestive heart failure unlikely. RECOMMENDATIONS AND DISCUSSION: In this 35-year-old gentleman who presented with multiple complex medical issues, we will monitor the patient closely, continue the current medications, continue symptomatic treatment. Otherwise, will continue with empiric antibiotics. Continue the rest of the medications. Neurology has seen the patient and Dr. Crowder has recommended Lamictal dose to be increased to 125 mg twice daily because the patient is highly sensitive to multiple antiepileptic medications. Baclofen 3 times daily will be continued. A 2D echo Doppler has been ordered, but this has not been read yet. As mentioned earlier, overall prognosis is extremely guarded because of multiple complex medical issues. Further recommendations to follow. MMODL / IJN: [id number] /
[2020-08-17] MEDS: PANTOPRAZOLE 40 MG/10 ML VIAL IVP SCH ×3 (05:29→20:56)
[2020-08-17 06:14] LABS: ALT 21 U/L (4-49); AST 30 U/L (17-59); African American GFR (CKD) >90 (>60 ml/min/1.73 sqM); Albumin 3.7 g/dL (3.5-5.0); Albumin/Globulin Ratio 1.5; Alkaline Phosphatase 46 U/L (38-126); Anion Gap 6 mmol/L; Blood Urea Nitrogen 16 mg/dL (9-20); Calcium 9.1 mg/dL (8.4-10.2); Carbon Dioxide 29 mmol/L (22-30); Chloride 102 mmol/L (98-107); Globulin 2.5 g/dL; Glucose 103 mg/dL (74-99); Non-African American GFR(CKD) >90 (>60 ml/min/1.73 sqM); Potassium 3.7 mmol/L (3.5-5.1); Sodium 137 mmol/L (137-145); Total Bilirubin 0.5 mg/dL (0.2-1.3); Total Protein 6.2 g/dL (6.3-8.2)
[2020-08-17 06:42] LABS: HCT 39.6 % (39.0-53.0); HGB 13.2 gm/dL (13.0-17.5); MCH 27.4 pg (25.0-35.0); MCHC 33.3 g/dL (31.0-37.0); MCV 82.3 fL (80.0-100.0); Mean Platelet Volume 7.2; Platelet Count 221 k/uL (150-450); RBC 4.81 m/uL (4.30-5.90); RDW 13.6 % (11.5-15.5); WBC 6.8 k/uL (3.8-10.6)
[2020-08-17] MEDS: MULTIVITAMINS, THERA 1 EACH TAB PO SCH (08:19)
[2020-08-17] MEDS: lamoTRIgine 100 MG TAB PO SCH ×2 (08:24→20:56)
[2020-08-17] MEDS: lamoTRIgine 25 MG TAB PO SCH ×2 (08:24→20:55)
[2020-08-17] MEDS: BACLOFEN 10 MG TAB PO SCH ×3 (08:24→20:55)
--- NOTE | 2020-08-17 11:00 | ECHOF ---
Referral Reason:Stroke MEASUREMENTS -------- HEIGHT: 154.9 cm WEIGHT: 81.7 kg BP: IVSd: 1.2 cm (0.6 - 1.1) LVIDd: 2.2 cm (3.9 - 5.3) LVPWd: 1.2 cm (0.6 - 1.1) IVSs: 1.7 cm LVIDs: 1.4 cm LVPWs: 1.5 cm Ao Diam: 2.9 cm (2.0 - 3.7) AV Cusp: 1.8 cm (1.5 - 2.6) LA Diam: 2.4 cm (2.7 - 3.8) MV EXCURSION: 14.924 mm (> 18.000) MV EF SLOPE: 82 mm/s (70 - 150) EPSS: 0.5 cm MV E Phil: 0.63 m/s MV DecT: 180 ms MV A Phil: 0.67 m/s MV E/A Ratio: 0.94 RAP: 5.00 mmHg RVSP: 14.52 mmHg FINDINGS -------- This was a technically difficult study with suboptimal views. The left ventricular size is normal. There is mild concentric left ventricular hypertrophy. Overa ll left ventricular systolic function is normal with, an EF between 55 - 60 %. The right ventricle is normal in size. The left atrial size is normal. The right atrial size is normal. xx ml of Lumason was utilized for enhancement of images. The aortic valve was not well visualized. The mitral valve is normal. There is trace mitral regurgitation. The tricuspid valve appears structurally normal. Trace tricuspid regurgitation present. Right chris tricular systolic pressure is normal at < 35 mmHg. The pulmonic valve was not well visualized. The aortic root size is normal. IVC Not well visulized. There is no pericardial effusion. CONCLUSIONS -------- 1. The left ventricular size is normal. 2. There is mild concentric left ventricular hypertrophy. 3. Overall left ventricular systolic function is normal with, an EF between 55 - 60 %. 4. There is trace mitral regurgitation. 5. Trace tricuspid regurgitation present. 6. There is no pericardial effusion. MALTED [employer]K MASHER: Ary Rosas [facility]
--- NOTE | 2020-08-17 12:17 | P.PN ---
Subjective Progress Note Date: 08/17/20 This is a very pleasant 35-year-old gentleman who was unfortunate who was admitted to the hospital with recurrent seizure and closed head injury and we consulted to see the patient for heart failure. The patient was seen today. He does not look in any overt congestive heart failure. He underwent an echocardiogram and that revealed normal left ventricular systolic function. He denies any shortness of breath or any chest pain or chest discomfort. Hemodynamically he is a stable except for mild sinus tachycardia which has been intermittent. At this point I would continue the current medical regimen and monitor the heart rate for additional 24 hours. If he continues to be tachycardic I would consider adding a small dose of beta rosalva. Objective - Vital Signs Vital signs: Vital Signs Temp 98.3 F 08/17/20 11:29 Pulse 95 08/17/20 11:29 Resp 20 08/17/20 11:29 BP 114/80 08/17/20 11:29 Pulse Ox 93 L 08/17/20 11:29 Intake & Output 08/16/20 08/17/20 08/17/20 18:59 06:59 18:59 Intake Total 240 1200 Output Total 200 680 Balance 40 520 Intake: Intake, IV Titration 240 240 Amount Sodium Chloride 0.9% 1, 240 240 000 ml @ 20 mls/hr IV . Q24H [facility] Rx#:[id number] Oral 960 Output: Urine 200 650 Emesis 30 Other: Voiding Method Urinal Urinal Urinal # Voids 1 - Constitutional General appearance: Present: no acute distress - Respiratory Respiratory: bilateral: diminished - Cardiovascular Rhythm: regular Heart sounds: normal: S1, S2 - Labs CBC & Chem 7: 08/17/20 05:39 08/17/20 05:39 Labs: Abnormal Lab Results - Last 24 Hours (Table) 08/17/20 Range/Units 05:39 Glucose 103 H (74-99) mg/dL Total Protein 6.2 L (6.3-8.2) g/dL Microbiology - Last 24 Hours (Table) 08/15/20 11:51 Blood Culture - Preliminary Blood No Growth after 24 hours Assessment and Plan Assessment: Assessment #1 recurrent seizure #2 closed head injury #3 sinus tachycardia Plan #1 continue the current medical regimen #2 monitor the heart rate and blood pressure for the next 24 hours
--- NOTE | 2020-08-17 12:56 | P.PN ---
Subjective Progress Note Date: 08/17/20 Visit 35-year-old male patient with known history of positive injury at the age of 9. At that time, the patient had a serious injury requiring long-term intubation mechanical ventilation the patient also required a tracheostomy tube insertion. Since then, the patient also developed an epilepsy disorder. The patient was brought in yesterday to the emergency department after having recurrent bouts of seizures starting Sunday which is 2 days ago. The patient was having jerks focally involving the upper and lower extremity without losing complete consciousness. On Sunday, he felt better and on Sunday he started developing ongoing seizure activity and during the process he was seizing around 3-5 minutes at a time and he would stop and the mother noted that he would have had some aspiration. The patient takes Lamictal 100 mg by mouth twice a day and in the emergency department he was given a milligram of Ativan. Currently is awake. He is able to follow some simple commands. He does have a weak cough. No previous aspiration. No previous pneumonias. His chest x-ray is showing smaller lung volumes and there is a suspicion for diaphragmatic weakness/paralysis 9 in the lung volumes are small and the diaphragms are settings high in the chest. Neurology has been evaluating this patient regarding seizure activity. The patient has had definitive disease with other antiepileptic medications the patient was kept on Lamictal for now and the dose was modified. 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 The white cell count was at 7 with a glucose of 95 and a calcium level of 9.1 and the liver function tests were normal, UA was negative and the COVID 19 testing was also negative by PCR. On 08/17/2020, the patient is slightly more lethargic. I was told that the patient around 3 AM he had a seizure which was another breakthrough seizure and following the seizures the patient had some emesis of brown material. The patient has known gastric distention. No reported aspiration. He is currently on Levaquin. Neurology was made aware of the breakthrough seizures. Currently, he is awake and he is not having any signs of respiratory distress. On room air oxygen. Abdomen is nondistended. Renal function is stable. Creatinine is at 0.68 and the white cell count is at 6.8 with a hemoglobin of 13.2. He is still on Lamictal at a dose of 125 mg twice a day. Noted the patient was also given a dose of Ativan at a time of his seizure 1 mg IV push. Objective - Vital Signs Vital signs: Vital Signs Temp 98.3 F 08/17/20 11:29 Pulse 95 08/17/20 11:29 Resp 20 08/17/20 11:29 BP 114/80 08/17/20 11:29 Pulse Ox 93 L 08/17/20 11:29 Intake & Output 08/16/20 08/17/20 08/17/20 18:59 06:59 18:59 Intake Total 240 1200 Output Total 200 680 Balance 40 520 Intake: Intake, IV Titration 240 240 Amount Sodium Chloride 0.9% 1, 240 240 000 ml @ 20 mls/hr IV . Q24H [facility] Rx#:[id number] Oral 960 Output: Urine 200 650 Emesis 30 Other: Voiding Method Urinal Urinal Urinal # Voids 1 - Exam Obese and, comfortable, not in acute respiratory distress, BMI 35.2 Head exam was generally normal. There was no scleral icterus or corneal arcus. Mucous membranes were moist. Neck was supple and without jugular venous distension, thyromegaly, or carotid bruits. Carotids were easily palpable bilaterally. There was no adenopathy. Patient has significant crowding of the posterior oropharynx with a Mallampati class IV Lungs sounds are diminished in lung base bilaterally and the patient's inspiratory efforts are quite weak and the breath sounds are overall diminished throughout the lung hooker. Cardiac exam revealed the PMI to be normally situated and sized. The rhythm was regular and no extrasystoles were noted during several minutes of auscultation. The first and second heart sounds were normal and physiologic splitting of the second heart sound was noted. There were no murmurs, rubs, clicks, or gallops. Abdominal exam revealed normal bowel sounds. The abdomen was soft, non-tender, and without masses, organomegaly, or appreciable enlargement of the abdominal aorta. Examination of the extremities revealed easily palpable radial, femoral and pedal pulses. There was no cyanosis, clubbing or edema. Examination of the skin revealed no evidence of significant rashes, suspicious appearing nevi or other concerning lesions. Neurologically, the patient is awake and alert and the patient has chronic contractures in all 4 extremities and chronic spasticity. - Labs CBC & Chem 7: 08/17/20 05:39 08/17/20 05:39 Labs: Abnormal Lab Results - Last 24 Hours (Table) 08/17/20 Range/Units 05:39 Glucose 103 H (74-99) mg/dL Total Protein 6.2 L (6.3-8.2) g/dL Microbiology - Last 24 Hours (Table) 08/15/20 11:51 Blood Culture - Preliminary Blood No Growth after 24 hours Assessment and Plan Plan: 1 aspiration suspected. Nevertheless, the patient has signs of chronic respiratory insufficiency. The chest x-ray shows smaller lung volumes with elevation of the diaphragms bilaterally, and this obviously raises the concern for diaphragmatic paralysis bilaterally and chronic respiratory insufficiency. The patient has a very weak cough. The patient's chest x-ray does not reveal any acute pulmonary infection or pneumonia. The patient was febrile and the patient was covered with antibiotics and the patient was given Levaquin 2 history of closed head injury 3 history of chronic respiratory failure post closed head injury and the patient required insertion and removal of tracheostomy tube 4 history of epilepsy post closed head injury and the patient was hospitalized for breakthrough seizures 5 obesity. plan The patient had another breakthrough seizure yesterday. We'll discuss this with neurology in regards to his antiepileptic medication adjustments Aspiration precautions Levaquin 500 milligrams by mouth. The choice of the antibiotic was made based on the patient's ALLERGIES. Ne urology in regards to ongoing seizure activity. Lamictal was And the dose was modifiedAnd the patient is currently taking Lamictal 125 mg by mouth twice a day Monitor the fever pattern Repeat chest x-ray in a.m.
[2020-08-17] MEDS: LEVOFLOXACIN 500MG-D5W PMX 500 MG in DEXTROSE/WATER 1 100ML.BAG IVPB SCH (15:24)
--- NOTE | 2020-08-17 15:25 | P.PN ---
Subjective Progress Note Date: 08/17/20 The patient was seen at bedside and he is accompanied the with his mother. Per the patient's mother he's doing drastically better today compared to his initial presentation. She stated that the patient did not have any seizures today in the morning or afterwards. Per the patient nurse he has not had any seizures today in the morning or afternoon and has been the doing well for her. Per the patient nurse the patient has a emesis and it was coffe ground emesis and and GI is on board. Per the patient mother she stated that the overnight the patient had recurrent episodes of vomiting lasting for a few hours and had an episode of jerking of the right upper extremity lasting for knee 30 minutes. Objective - Vital Signs Vital signs: Vital Signs Temp 98.3 F 08/17/20 11:29 Pulse 95 08/17/20 11:29 Resp 20 08/17/20 11:29 BP 114/80 08/17/20 11:29 Pulse Ox 93 L 08/17/20 11:29 Intake & Output 08/16/20 08/17/20 08/17/20 18:59 06:59 18:59 Intake Total 240 1200 Output Total 200 680 Balance 40 520 Intake: Intake, IV Titration 240 240 Amount Sodium Chloride 0.9% 1, 240 240 000 ml @ 20 mls/hr IV . Q24H [facility] Rx#:[id number] Oral 960 Output: Urine 200 650 Emesis 30 Other: Voiding Method Urinal Urinal Urinal # Voids 1 - Exam GENERAL: The patient is lying in bed and is not in acute distress. NEUROLOGICAL: Limited because of patient cooperation Higher mental function: The patient is awake, alert, oriented to self and place. Patient is able to name objects correctly (such as pen and watch). Patient is following simple commands. No aphasia and no neglect. Cranial nerves: The pupils are round, equal and reactive to light. Visual hooker are full to confrontation throughout. Extraocular were hard to assess because of cooperation. Has right lower facial weakness. Tongue is midline and moved [id number] without any difficulty. Has dysarthria (seems hoarse voice). Motor: Gait is deferred. Able to move all extremities above gravity. He has increase tone over the entire right side. Strength over the left upper extremity is 5/5 while lower extremity hard to assess because of cooperation but had at least antigravity. Cerebellum: Could not assess. Sensation: Sensation is normal to touch throughout. Reflexes (right/left): Brisk over the right upper and lower extremity. Plantars are mute bilaterally. - Labs CBC & Chem 7: 08/17/20 05:39 08/17/20 05:39 Labs: Abnormal Lab Results - Last 24 Hours (Table) 08/17/20 Range/Units 05:39 Glucose 103 H (74-99) mg/dL Total Protein 6.2 L (6.3-8.2) g/dL Microbiology - Last 24 Hours (Table) 08/15/20 11:51 Blood Culture - Preliminary Blood No Growth after 48 hours Assessment and Plan Assessment: This is a 35-year-old gentleman with history of epilepsy that presented to the emergency department on 08/15/2020 for recurring seizures. Recurrent focal motor seizure without loss of conciousness leading to status epilepticus--resolved. 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 Regarding going up on the Lamictal the patient's mother stated that she does not want his medication to be modified or for him to be on any additional anti-epileptic drugs. She feels the patient is doing better currently and in past was on higher Lamictal dose and patient could not tolerate it. An EEG is not warranted since the patient is back to his baseline and he has known history of chronic epilepsy and he had extensive workup in the past. From a neurology perspective the patient needs to follow-up with his neurologist within 1 to 2 weeks upon discharge. Regarding his coffee ground emesis will defer management to primary team. The plan is discussed with the patient's mother and his nurse. No further imaging or workup is needed from a neurology perspective. Will sign off. Please reconsult if needed. Rocco Crowder MD Neuro-Hospitalist Time with Patient: Less than 30
[2020-08-17] MEDS: SODIUM CHLORIDE 0.9% 1,000 ML IV SCH (17:41)
--- NOTE | 2020-08-17 17:55 | PN ---
PROGRESS NOTE DATE OF SERVICE: 08/17/2020 This 35-year-old gentleman admitted with acute seizure disorder and possible status epilepticus also had possibly aspiration pneumonia. The patient is on broad-spectrum IV antibiotics. The patient last night also had probably a breakthrough seizure and was subsequently apparently throwing up with some gastric distention and one episode of hematemesis. Gastroenterology has been consulted. Patient is being closely monitored at this time. Lab-umana, hemoglobin is stable at 13.2 at this time. Cultures are negative. Past medical history reviewed. Review of systems could not be taken. CURRENT MEDICATIONS: Reviewed. They include Lioresal, Celexa, Lamictal, Levaquin, multivitamins, Narcan, Protonix. PHYSICAL EXAMINATION: The patient is conscious but stuporous, noncommunicative. Pulse 95, blood pressure 114/80, respiration 20, temperature 98.3, pulse ox 93% on room air. HEENT: Conjunctivae normal. NECK: No jugular venous distention. CARDIOVASCULAR SYSTEM: S1, S2 muffled. RESPIRATORY SYSTEM: Breath sounds diminished at the bases. A few scattered rhonchi. ABDOMEN: Soft. NERVOUS SYSTEM: Unchanged. LABS: Glucose 103. ASSESSMENT: 1. Acute seizure disorder with breakthrough seizures and status epilepticus. 2. Possible bilateral aspiration pneumonia. 3. Possible upper gastrointestinal bleeding and hematemesis. 4. History of closed-head injury. 5. Seizure disorder history. 6. History of depression. 7. Congestive heart failure unlikely. RECOMMENDATIONS AND DISCUSSION: In this 35-year-old gentleman who presented with multiple complex medical issues, we will monitor the patient closely, continue the current medications, continue symptomatic treatment. A 2D echo with Doppler which was read by Cardiology showed ejection fraction about 55% to 60% and no significant valvular lesions. However, we will obtain a gastroenterology evaluation because of the hematemesis. Continue with the current medications. Continue with current antibiotics. Review of the seizure medications by Neurology. Further recommendations to follow. MMODL / IJN: [id number] /
--- NOTE | 2020-08-17 18:30 | CONS ---
CONSULTATION DATE OF DICTATION: 08/17/2020 REASON FOR CONSULTATION: Coffee-ground emesis. HISTORY OF PRESENT ILLNESS: The patient is a 35-year-old pleasant white male with a history of traumatic brain injury and seizure disorder who was admitted to the hospital after he had multiple seizures that lasted for almost 2 hours. While he was having seizures he had several episodes of nausea and vomiting followed by coffee-ground emesis. He was subsequently brought to the emergency room and admitted to the hospital for further management. Since being in the hospital, according to his mother, he had no further episodes of bleeding. The patient had some altered mental status at the time of admission to the hospital, but slowly he is waking up and is doing much better. On further questioning, the patient reports no abdominal pain. In the ER, he had labs done and CBC was 13.2 g/dL. PAST MEDICAL HISTORY: Significant for seizure disorder, traumatic brain injury in 1994. HOME MEDICATIONS: Baclofen, Celexa, multivitamin, Lamictal, vitamin C and vitamin B. ALLERGIES: AUGMENTIN and BACTRIM. SOCIAL HISTORY: No smoking. No alcohol use. FAMILY HISTORY: Unremarkable. REVIEW OF SYSTEMS: Review of systems could not be obtained, as patient is not answering most of the questions. PHYSICAL EXAMINATION: He appears comfortable. VITAL SIGNS: Stable. Blood pressure is 114/80, pulse rate 95, temperature 98.3. HEENT examination unremarkable. Conjunctivae pink. Sclerae anicteric. Oral cavity no lesions. NECK: No JVD or lymph node enlargement. CHEST: Clear to auscultation. HEART: Regular rate and rhythm. ABDOMEN: Soft. Bowel sounds are positive. No organomegaly. EXTREMITIES: No pedal edema. NEUROLOGIC: He is awake, answering simple questions appropriately. LABS: Labs done at the time of admission to the hospital showed WBC 6.8, hemoglobin 13.2, platelets 221, BUN 6, creatinine 0.68. Rest of the labs are within normal limits. Coronavirus PCR is negative. IMPRESSION: 1. Coffee-ground emesis x2 yesterday. No further bleeding since being in the hospital. Hemoglobin stable at 13.2 g/dL. 2. History of seizure disorder. Patient with multiple seizures yesterday that lasted for 2 hours, during which time he had nausea, vomiting and coffee-ground emesis. Seizures have resolved. Neurology has been consulted. 3. History of closed-head injury in 1994. 4. Mild altered mental status which is gradually improving. RECOMMENDATIONS: 1. Continue with Protonix 40 mg q.12 hours. 2. Monitor CBC daily. 3. No plans for any endoscopic intervention at the present time since no further episodes of bleeding noted. 4. Will follow with you closely. Thank you for this consultation. MMODL / IJN: [id number] /
[2020-08-17] MEDS: CITALOPRAM HYDROBROMIDE 10 MG TAB PO SCH (20:55)
[2020-08-18] MEDS: lamoTRIgine 25 MG TAB PO SCH ×2 (08:44→21:53)
[2020-08-18] MEDS: BACLOFEN 10 MG TAB PO SCH ×3 (08:45→21:53)
[2020-08-18] MEDS: PANTOPRAZOLE 40 MG/10 ML VIAL IVP SCH ×2 (08:45→19:55)
[2020-08-18] MEDS: lamoTRIgine 100 MG TAB PO SCH ×2 (08:45→21:53)
[2020-08-18] MEDS: MULTIVITAMINS, THERA 1 EACH TAB PO SCH (08:45)
--- NOTE | 2020-08-18 09:28 | XR ---
EXAMINATION TYPE: XR chest 1V portable DATE OF EXAM: 08/18/2020 COMPARISON: Chest x-ray 08/16/2020 HISTORY: Shortness of breath TECHNIQUE: Single frontal view of the chest is obtained. FINDINGS: Exam is expiratory and rotated as on prior exam. Patchy basilar density is again noted. Ca rdiac mediastinal silhouette is thought to be stable accounting for differences in technique. There i s no evident pneumothorax or pleural effusion. IMPRESSION: Expiratory rotated exam, suspect basilar atelectasis
--- NOTE | 2020-08-18 09:36 | P.PN ---
Subjective Progress Note Date: 08/18/20 Visit 35-year-old male patient with known history of positive injury at the age of 9. At that time, the patient had a serious injury requiring long-term intubation mechanical ventilation the patient also required a tracheostomy tube insertion. Since then, the patient also developed an epilepsy disorder. The patient was brought in yesterday to the emergency department after having recurrent bouts of seizures starting Sunday which is 2 days ago. The patient was having jerks focally involving the upper and lower extremity without losing complete consciousness. On Sunday, he felt better and on Sunday he started developing ongoing seizure activity and during the process he was seizing around 3-5 minutes at a time and he would stop and the mother noted that he would have had some aspiration. The patient takes Lamictal 100 mg by mouth twice a day and in the emergency department he was given a milligram of Ativan. Currently is awake. He is able to follow some simple commands. He does have a weak cough. No previous aspiration. No previous pneumonias. His chest x-ray is showing smaller lung volumes and there is a suspicion for diaphragmatic weakness/paralysis 9 in the lung volumes are small and the diaphragms are settings high in the chest. Neurology has been evaluating this patient regarding seizure activity. The patient has had definitive disease with other antiepileptic medications the patient was kept on Lamictal for now and the dose was modified. 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 The white cell count was at 7 with a glucose of 95 and a calcium level of 9.1 and the liver function tests were normal, UA was negative and the COVID 19 testing was also negative by PCR. On 08/17/2020, the patient is slightly more lethargic. I was told that the patient around 3 AM he had a seizure which was another breakthrough seizure and following the seizures the patient had some emesis of brown material. The patient has known gastric distention. No reported aspiration. He is currently on Levaquin. Neurology was made aware of the breakthrough seizures. Currently, he is awake and he is not having any signs of respiratory distress. On room air oxygen. Abdomen is nondistended. Renal function is stable. Creatinine is at 0.68 and the white cell count is at 6.8 with a hemoglobin of 13.2. He is still on Lamictal at a dose of 125 mg twice a day. Noted the patient was also given a dose of Ativan at a time of his seizure 1 mg IV push. On 08/18/2020, the patient is being seen for a follow-up. He remains on Lamictal on 25 mg by mouth twice a day regarding his seizures. The patient also has been on Levaquin for questionable aspiration pneumonia. Chest x-ray was done and showed some atelectatic changes in the left lung base. No signs of respiratory distress. Both of 94% room air oxygen. The patient is afebrile for now. No nausea. No vomiting. No diarrhea. No abdominal pain. Patient did not have any seizure activity and he slept well overnight and the mother was at the bedside. The abdomen is nondistended. The patient is awake and alert and he does have some bowel sounds. Objective - Vital Signs Vital signs: Vital Signs Temp 98.4 F 08/18/20 07:13 Pulse 86 08/18/20 07:13 Resp 16 08/18/20 07:13 BP 115/73 08/18/20 07:13 Pulse Ox 94 L 08/18/20 07:13 Intake & Output 08/17/20 08/18/20 08/18/20 18:59 06:59 18:59 Intake Total 340 Output Total 300 Balance 340 -300 Intake: Intake, IV Titration 340 Amount Levofloxacin 500Mg-D5w 100 Pmx 500 mg In Dextrose/ Water 1 100ml.bag @ 100 mls/hr IVPB Q24H [facility] Rx#: [id number] Sodium Chloride 0.9% 1, 240 000 ml @ 20 mls/hr IV . Q24H [facility] Rx#:[id number] Output: Urine 300 Other: Voiding Method Urinal Urinal # Voids 4 - Exam Obese and, comfortable, not in acute respiratory distress, BMI 35.2 Head exam was generally normal. There was no scleral icterus or corneal arcus. Mucous membranes were moist. Neck was supple and without jugular venous distension, thyromegaly, or carotid bruits. Carotids were easily palpable bilaterally. There was no adenopathy. Patient has significant crowding of the posterior oropharynx with a Mallampati class IV Lungs sounds are diminished in lung base bilaterally and the patient's inspiratory efforts are quite weak and the breath sounds are overall diminished throughout the lung hooker. Cardiac exam revealed the PMI to be normally situated and sized. The rhythm was regular and no extrasystoles were noted during several minutes of auscultation. The first and second heart sounds were normal and physiologic splitting of the second heart sound was noted. There were no murmurs, rubs, clicks, or gallops. Abdominal exam revealed normal bowel sounds. The abdomen was soft, non-tender, and without masses, organomegaly, or appreciable enlargement of the abdominal aorta. Examination of the extremities revealed easily palpable radial, femoral and pedal pulses. There was no cyanosis, clubbing or edema. Examination of the skin revealed no evidence of significant rashes, suspicious appearing nevi or other concerning lesions. Neurologically, the patient is awake and alert and the patient has chronic contractures in all 4 extremities and chronic spasticity. - Labs CBC & Chem 7: 08/17/20 05:39 08/17/20 05:39 Labs: Microbiology - Last 24 Hours (Table) 08/15/20 11:51 Blood Culture - Preliminary Blood No Growth after 48 hours Assessment and Plan Plan: 1 aspiration suspected. Nevertheless, the patient has signs of chronic respiratory insufficiency. The chest x-ray shows smaller lung volumes with elevation of the diaphragms bilaterally, and this obviously raises the concern for diaphragmatic paralysis bilaterally and chronic respiratory insufficiency. The patient has a very weak cough. The patient's chest x-ray does not reveal any acute pulmonary infection or pneumonia. The patient is currently afebrile. Chest x-ray showed some limited atelectatic changes in lung bases. He remains on Levaquin I will treat the patient for a total of 5 days. 2 history of closed head injury 3 history of chronic respiratory failure post closed head injury and the patient required insertion and removal of tracheostomy tube 4 history of epilepsy post closed head injury and the patient was hospitalized for breakthrough seizures 5 obesity. plan The patient has had no seizures overnight the patient is currently on Lamictal 125 mg by mouth twice a day Aspiration precautions Levaquin 500 milligrams by mouth. I suggest completing a total of 5 day course The choice of the antibiotic was made based on the patient's ALLERGIES. Neurology in regards to ongoing seizure activity. Lamictal was And the dose was modifiedAnd the patient is currently taking Lamictal 125 mg by mouth twice a day Monitor the fever pattern, currently afebrile Repeat chest x-ray in a.m. from this morning showing some limited atelectatic changes in lung bases Provide diet Continue to follow
--- NOTE | 2020-08-18 10:57 | P.PN ---
Subjective Progress Note Date: 08/18/20 CHIEF COMPLAINT: Congestive heart failure HISTORY OF PRESENT ILLNESS: 08/16/2020 This is a 35-year-old male with a past medical history significant for closed he ad injury and seizure disorder. Patient does not follow with a air pumper. We have been asked to see the patient in consultation for congestive heart failure. Patient examined this morning at the bedside. Mother is present and providing the majority of the patient's history. Patient was brought to the hospital secondary to seizure activity. The patient was having emesis with his seizures which concerned his mother and prompted his visit to the emergency room. The patient currently denies chest pain or pressure. Denies shortness of breath. Patient had a chest x-ray completed revealing low lung volumes and/or poor inspiration. Cardiomegaly with mild to moderate central vascular congestion. BNP was 11. Patient was given a dose of IV lasix per internal medicine yesterday. 08/18/2020 Patient examined this morning at the bedside. Patient's mother is present. She reports the patient had a good night and has not had any further episodes of vomiting or seizure activity. Patient's heart rate is in 80s to 90s. PHYSICAL EXAM: VITAL SIGNS: Reviewed. GENERAL: Well-developed in no acute distress. HEENT: Head is normocephalic. Pupils are equal, round. Sclerae anicteric. Mucous membranes of the mouth are moist. Neck supple. No JVD or thyromegaly LUNGS: Respirations even and unlabored. Lungs essentially clear to auscultation bilaterally, diminished. No crackles auscultated. HEART: Regular rate and rhythm. S1 and S2 heard. ABDOMEN: Soft. Nondistended. Nontender. EXTREMITIES: Normal range of motion. No clubbing or cyanosis. Peripheral pulses intact. No lower extremity edema NEUROLOGIC: Awake and alert. Oriented x 2. ASSESSMENT: Recurrent seizures Closed head injury Congestive heart failure, ruled out, BNP 11 PLAN: Patient is currently stable from a cardiac perspective. Patient's heart rate has improved. No need to add beta rosalva therapy. We will sign off. Please reconsult as needed. Nurse practitioner note has been reviewed by physician. Signing provider agrees with the documented findings, assessment, and plan of care. Objective - Vital Signs Vital signs: Vital Signs Temp 98.4 F 08/18/20 07:13 Pulse 86 08/18/20 07:13 Resp 16 08/18/20 07:13 BP 115/73 08/18/20 07:13 Pulse Ox 94 L 08/18/20 07:13 Intake & Output 08/17/20 08/18/20 08/18/20 18:59 06:59 18:59 Intake Total 340 Output Total 300 Balance 340 -300 Intake: Intake, IV Titration 340 Amount Levofloxacin 500Mg-D5w 100 Pmx 500 mg In Dextrose/ Water 1 100ml.bag @ 100 mls/hr IVPB Q24H [facility] Rx#: [id number] Sodium Chloride 0.9% 1, 240 000 ml @ 20 mls/hr IV . Q24H [facility] Rx#:[id number] Output: Urine 300 Other: Voiding Method Urinal Urinal Urinal # Voids 4 - Labs CBC & Chem 7: 08/17/20 05:39 08/17/20 05:39 Labs: Microbiology - Last 24 Hours (Table) 08/15/20 11:51 Blood Culture - Preliminary Blood No Growth after 48 hours
[2020-08-18 11:23] LABS: HCT 38.7 % (39.0-53.0); HGB 12.7 gm/dL (13.0-17.5); MCH 26.8 pg (25.0-35.0); MCHC 32.8 g/dL (31.0-37.0); MCV 81.7 fL (80.0-100.0); Mean Platelet Volume 7.3; Platelet Count 255 k/uL (150-450); RBC 4.74 m/uL (4.30-5.90); RDW 13.9 % (11.5-15.5); WBC 5.8 k/uL (3.8-10.6)
--- NOTE | 2020-08-18 14:55 | FL ---
EXAMINATION TYPE: FL barium swallow DATE OF EXAM: 08/18/2020 COMPARISON: None HISTORY: Possible aspiration with vomiting after eating and seizures TECHNIQUE: A single contrast esophagram study is performed. Exam is very limited due to patient's ph ysical condition despite good level of cooperation. FINDINGS: Fluoroscopy time: 52 seconds. Images: 11 Esophagus extends to the gastroesophageal junction. With swallowing this appears slightly patulous wi thout intraluminal or extrarenal defects. A couple of small tertiary contractions may be present duri ng the exam. Reflux was not elicited. Small hiatal hernia may be present. IMPRESSIONS: 1. No aspiration was demonstrated during this exam. 2. Mild presbyesophagus. 3. Small self reducing sliding type hiatal hernia.
[2020-08-18] MEDS: LEVOFLOXACIN 500MG-D5W PMX 500 MG in DEXTROSE/WATER 1 100ML.BAG IVPB SCH (15:11)
[2020-08-18] MEDS: SODIUM CHLORIDE 0.9% 1,000 ML IV SCH (15:57)
--- NOTE | 2020-08-18 16:24 | P.PN ---
Subjective Progress Note Date: 08/18/20 Principal diagnosis: Coffee-ground emesis This is a pleasant 35-year-old male patient with a history of traumatic brain injury and seizure disorder was submitted to the hospital after he had multiple seizures lasting for approximately 2 hours. During that time he was noted to h ave several episodes of emesis, some noted to be coffee-ground in color. Since coming to the hospital he's had no further episodes of vomiting. He reports no abdominal pain, nausea, or vomiting. Speech pathology saw him yesterday for a swallowing evaluation, did not know any signs of aspiration but recommended considering esophagram. His mother remains at the bedside and reports that he has also had no further seizures. Objective - Vital Signs Vital signs: Vital Signs Temp 98.4 F 08/18/20 07:13 Pulse 86 08/18/20 07:13 Resp 16 08/18/20 07:13 BP 115/73 08/18/20 07:13 Pulse Ox 94 L 08/18/20 07:13 Intake & Output 08/17/20 08/18/20 08/18/20 18:59 06:59 18:59 Intake Total 340 Output Total 300 Balance 340 -300 Intake: Intake, IV Titration 340 Amount Levofloxacin 500Mg-D5w 100 Pmx 500 mg In Dextrose/ Water 1 100ml.bag @ 100 mls/hr IVPB Q24H [facility] Rx#: [id number] Sodium Chloride 0.9% 1, 240 000 ml @ 20 mls/hr IV . Q24H [facility] Rx#:[id number] Output: Urine 300 Other: Voiding Method Urinal Urinal Urinal # Voids 4 - Exam General appearance: The patient is alert, nonverbal, appears in no acute distress. HET: Head is normocephalic and atraumatic. Conjunctiva pink. Sclera anicteric. Neck: Supple without lymphadenopathy. Abdomen: Soft, nontender, nondistended with bowel sounds. No guarding or rigidity. Extremities: Normal skin color and turgor. No pedal edema Skin: No rashes, no jaundice Neurological: History of traumatic brain injury. Nonverbal. - Labs CBC & Chem 7: 08/18/20 10:45 08/17/20 05:39 Labs: Microbiology - Last 24 Hours (Table) 08/15/20 11:51 Blood Culture - Preliminary Blood No Growth after 48 hours Assessment and Plan (1) Coffee ground emesis Narrative/Plan: This is a 35-year-old male patient with a history of traumatic brain injury who had multiple seizures followed by episodes of vomiting, with coffee-ground emesis noted. He has had no further bleeding since being in the hospital. Hemoglobin was stable on admission at 13.2 and remained stable at 12.7. Current Visit: Yes Status: Acute Code(s): K92.0 - HEMATEMESIS SNOMED Code(s): 87857855 (2) Status epilepticus Narrative/Plan: History of seizure disorder. Patient with multiple seizures yesterday that reportedly lasted for 2 hours, during which time he had nausea and vomiting of coffee-ground emesis. Seizures have resolved. Neurology is consulted and managing. Current Visit: Yes Status: Acute Code(s): G40.901 - EPILEPSY, UNSP, NOT INTRACTABLE, WITH STATUS EPILEPTICUS SNOMED Code(s): 980877614 (3) History of closed head injury Current Visit: Yes Status: Acute Code(s): Z87.820 - PERSONAL HISTORY OF TRAUMATIC BRAIN INJURY SNOMED Code(s): 87540450278840 Plan: 1. Supportive care 2. Protonix 40 mg twice a day 3. CBC ordered and reviewed 4. No plans for endoscopic intervention at the present time since no further episodes of bleeding noted. 5. Speech pathology consult reviewed, will order modified barium swallow 6. We will continue to follow with you closely. Thank you for this consultation Dr. Mai Encarnacion I agree with the dictator's note, documented as a scribe by Maria Elena Baldwin.
--- NOTE | 2020-08-18 18:03 | PN ---
PROGRESS NOTE DATE OF SERVICE: 08/18/2020 This 35-year-old gentleman admitted with seizure disorder also had possible aspiration pneumonia. Patient also had evidence of coffee-ground emesis; however, hemoglobin is rather stable. Barium swallow x-ray was recommended by Gastroenterology which showed no aspirations and mild depressed esophagus and small self-reducing sliding-type hiatal hernia. The patient continues to be minimally responsive, conscious. Past medical history reviewed. PHYSICAL EXAMINATION: Pulse is 90, blood pressure is 110/73, respirations 16, temperature 98 degrees, pulse ox 94% on room air. HEENT: Conjunctivae normal. NECK: No jugular venous distention. CARDIOVASCULAR SYSTEM: S1, S2 muffled. RESPIRATORY SYSTEM: Breath sounds diminished at the bases. A few scattered rhonchi. ABDOMEN: Soft. NERVOUS SYSTEM: No focal deficit. LABS: Hemoglobin 12.7. ASSESSMENT: 1. Acute seizure disorder with breakthrough seizures and status epilepticus. 2. Possible bilateral aspiration pneumonia. 3. Possible upper gastrointestinal bleeding with hematemesis, possible gastritis. 4. History of closed-head injury. 5. Seizure disorder history. 6. History of depression. 7. Congestive heart failure unlikely. RECOMMENDATIONS AND DISCUSSION: I recommend to continue current medications, continue with symptomatic treatment. Will continue the antibiotics. Antiepileptic medication per Neurology. Continue with symptomatic treatment. Once the patient is improved, the patient might be able to be discharged home. Follow up with Dr. Contreras closely in the outpatient setting. TAJ / SHA: [id number] /
[2020-08-18] MEDS ORDERED: ONDANSETRON 4 MG/2 ML VIAL IVP PRN (20:40)
[2020-08-18] MEDS: CITALOPRAM HYDROBROMIDE 10 MG TAB PO SCH (21:53)
[2020-08-19] MEDS: BACLOFEN 10 MG TAB PO SCH ×3 (08:23→21:00)
[2020-08-19] MEDS: lamoTRIgine 25 MG TAB PO SCH ×2 (08:23→20:55)
[2020-08-19] MEDS: PANTOPRAZOLE 40 MG/10 ML VIAL IVP SCH ×2 (08:23→20:56)
[2020-08-19] MEDS: lamoTRIgine 100 MG TAB PO SCH ×2 (08:23→20:55)
[2020-08-19] MEDS: MULTIVITAMINS, THERA 1 EACH TAB PO SCH (08:25)
--- NOTE | 2020-08-19 10:38 | P.PN ---
Subjective Progress Note Date: 08/19/20 Principal diagnosis: Status epilepticus 35-year-old male patient with known history of positive injury at the age of 9. At that time, the patient had a serious injury requiring long-term intubation mechanical ventilation the patient also required a tracheostomy tube insertion. Since then, the patient also developed an epilepsy disorder. The patient was brought in yesterday to the emergency department after having recurrent bouts of seizures starting Sunday which is 2 days ago. The patient was having jerks focally involving the upper and lower extremity without losing complete consciousness. On Sunday, he felt better and on Sunday he started developing ongoing seizure activity and during the process he was seizing around 3-5 minutes at a time and he would stop and the mother noted that he would have had some aspiration. The patient takes Lamictal 100 mg by mouth twice a day and in the emergency department he was given a milligram of Ativan. Currently is catherine ke. He is able to follow some simple commands. He does have a weak cough. No previous aspiration. No previous pneumonias. His chest x-ray is showing smaller lung volumes and there is a suspicion for diaphragmatic weakness/paralysis 9 in the lung volumes are small and the diaphragms are settings high in the chest. Neurology has been evaluating this patient regarding seizure activity. The patient has had definitive disease with other antiepileptic medications the patient was kept on Lamictal for now and the dose was modified. 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 The white cell count was at 7 with a glucose of 95 and a calcium level of 9.1 and the liver function tests were normal, UA was negative and the COVID 19 testing was also negative by PCR. On 08/17/2020, the patient is slightly more lethargic. I was told that the patient around 3 AM he had a seizure which was another breakthrough seizure and following the seizures the patient had some emesis of brown material. The patient has known gastric distention. No reported aspiration. He is currently on Levaquin. Neurology was made aware of the breakthrough seizures. Currently, he is awake and he is not having any signs of respiratory distress. On room air oxygen. Abdomen is nondistended. Renal function is stable. Creatinine is at 0.68 and the white cell count is at 6.8 with a hemoglobin of 13.2. He is still on Lamictal at a dose of 125 mg twice a day. Noted the patient was also given a dose of Ativan at a time of his seizure 1 mg IV push. On 08/18/2020, the patient is being seen for a follow-up. He remains on Lamictal on 25 mg by mouth twice a day regarding his seizures. The patient also has been on Levaquin for questionable aspiration pneumonia. Chest x-ray was done and showed some atelectatic changes in the left lung base. No signs of respiratory distress. Both of 94% room air oxygen. The patient is afebrile for now. No nausea. No vomiting. No diarrhea. No abdominal pain. Patient did not have any seizure activity and he slept well overnight and the mother was at the bedside. The abdomen is nondistended. The patient is awake and alert and he does have some bowel sounds. The patient is seen today 08/19/2020 in follow-up on the regular medical floor. His mom is at the bedside. He has not had any seizures in the past 24 hours. He remains on Lamictal. He is currently resting quite comfortably in bed. Maintaining O2 saturations in the 90s on room air. He did undergo a swallowing evaluation that revealed no evidence of aspiration, mild presbyesophagus, small self reducing sliding hiatal hernia. He was however given liquids that he seems to spit out more than choke on according to nursing staff. He remains nothing by mouth currently. GI services are on the case. Blood cultures reveal no growth. Labs are pending today. He remains on antibiotics in the form of Levaquin. Objective - Vital Signs Vital signs: Vital Signs Temp 98.5 F 08/19/20 04:19 Pulse 104 H 08/19/20 04:19 Resp 20 08/19/20 04:19 BP 128/75 08/19/20 04:19 Pulse Ox 95 08/19/20 04:19 Intake & Output 08/18/20 08/19/20 08/19/20 18:59 06:59 18:59 Intake Total 340 240 Output Total 300 Balance 40 240 Intake: Intake, IV Titration 340 240 Amount Levofloxacin 500Mg-D5w 100 Pmx 500 mg In Dextrose/ Water 1 100ml.bag @ 100 mls/hr IVPB Q24H [facility] Rx#: [id number] Sodium Chloride 0.9% 1, 240 240 000 ml @ 20 mls/hr IV . Q24H [facility] Rx#:[id number] Output: Urine 300 Other: Voiding Method Urinal Urinal Urinal # Voids 2 # Emeses 2 - Exam Obese and, comfortable, 35-year-old gentleman, on room air, not in acute respiratory distress, BMI 35.2 Head exam was generally normal. There was no scleral icterus or corneal arcus. Mucous membranes were moist. Neck was supple and without jugular venous distension, thyromegaly, or carotid bruits. Carotids were easily palpable bilaterally. There was no adenopathy. Patient has significant crowding of the posterior oropharynx with a Mallampati class IV Lungs sounds are diminished in lung base bilaterally and the patient's inspiratory efforts are quite weak and the breath sounds are overall diminished throughout the lung hooker. Cardiac exam revealed the PMI to be normally situated and sized. The rhythm was regular and no extrasystoles were noted during several minutes of auscultation. The first and second heart sounds were normal and physiologic splitting of the second heart sound was noted. There were no murmurs, rubs, clicks, or gallops. Abdominal exam revealed normal bowel sounds. The abdomen was soft, non-tender, and without masses, organomegaly, or appreciable enlargement of the abdominal ao rta. Examination of the extremities revealed easily palpable radial, femoral and pedal pulses. There was no cyanosis, clubbing or edema. Examination of the skin revealed no evidence of significant rashes, suspicious appearing nevi or other concerning lesions. Neurologically, the patient is awake and alert and the patient has chronic contractures in all 4 extremities and chronic spasticity. - Labs CBC & Chem 7: 08/18/20 10:45 08/17/20 05:39 Labs: Abnormal Lab Results - Last 24 Hours (Table) 08/18/20 Range/Units 10:45 Hgb 12.7 L (13.0-17.5) gm/dL Hct 38.7 L (39.0-53.0) % Microbiology - Last 24 Hours (Table) 08/15/20 11:51 Blood Culture - Preliminary Blood No Growth after 72 hours Assessment and Plan Assessment: 1 aspiration suspected. Nevertheless, the patient has signs of chronic respiratory insufficiency. The chest x-ray shows smaller lung volumes with elevation of the diaphragms bilaterally, and this obviously raises the concern for diaphragmatic paralysis bilaterally and chronic respiratory insufficiency. The patient has a very weak cough. The patient's chest x-ray does not reveal any acute pulmonary infection or pneumonia. The patient is currently afebrile. Chest x-ray showed some limited atelectatic changes in lung bases. He remains on Levaquin I will treat the patient for a total of 5 days. 2 history of closed head injury 3 history of chronic respiratory failure post closed head injury and the patient required insertion and removal of tracheostomy tube 4 history of epilepsy post closed head injury and the patient was hospitalized for breakthrough seizures 5 obesity. Plan The patient was seen and evaluated by Dr. Aguirre Barium swallow results reviewed, no aspiration GI services are on the case Complete course of Levaquin Remains stable on room air No seizures in the past 24 hours Will continue to follow I, the cosigning physician, performed a history & physical examination of the patient. Lungs sounds are clear, diminished. Maintaining good O2 saturations in the 90s on room air. I discussed the assessment and plan of care with my nurse practitioner, Nataly Venegas. I attest to the above note as dictated by her.
[2020-08-19] MEDS: LEVOFLOXACIN 500MG-D5W PMX 500 MG in DEXTROSE/WATER 1 100ML.BAG IVPB SCH (14:51)
--- NOTE | 2020-08-19 16:14 | P.PN ---
Subjective Progress Note Date: 08/19/20 This is a 35-year-old male who was recently admitted with seizure disorder possible aspiration pneumonia and is being closely monitored. Patient was also noted to have evidence of coffee-ground emesis per mother and hemoglobin has remained stable. Barium swallow showed no aspiration and mild depressed e sophagus and a small self reducing sliding type hiatal hernia. Patient is alert and oriented 1-2 and follow simple commands. Mother Diamante is at the bedside. Mother is concerned as he continues to have vomiting noted. Abdomen on exam is nontender with no guarding or rigidity noted. No reports of chest pain. Patient is afebrile. Objective - Vital Signs Vital signs: Vital Signs Temp 98.5 F 08/19/20 04:19 Pulse 104 H 08/19/20 04:19 Resp 20 08/19/20 04:19 BP 128/75 08/19/20 04:19 Pulse Ox 95 08/19/20 04:19 Intake & Output 08/18/20 08/19/20 08/19/20 18:59 06:59 18:59 Intake Total 340 240 Output Total 300 Balance 40 240 Intake: Intake, IV Titration 340 240 Amount Levofloxacin 500Mg-D5w 100 Pmx 500 mg In Dextrose/ Water 1 100ml.bag @ 100 mls/hr IVPB Q24H [facility] Rx#: [id number] Sodium Chloride 0.9% 1, 240 240 000 ml @ 20 mls/hr IV . Q24H [facility] Rx#:[id number] Output: Urine 300 Other: Voiding Method Urinal Urinal Urinal # Voids 2 # Emeses 2 - Exam Gen: This is a 35-year-old male lying in bed awake, alert and oriented 1-2 baseline, well-developed, well-nourished. Temp is 98.5F, pulse is 104, respirations are 20, blood pressure is 128/75, oxygen saturation is 95% on room air. HEENT: Head is atraumatic, normocephalic. Pupils equal, round. Sclerae is anicteric. NECK: Supple. No JVD. No lymphadenopathy. No thyromegaly. LUNGS: Diminished breath sounds bilaterally with a few scattered rhonchi noted. No intercostal retractions. HEART: S1, S2 are muffled ABDOMEN: Soft. Bowel sounds are present. No masses. No tenderness. EXTREMITIES: No pedal edema. No calf tenderness. NEUROLOGICAL: Patient is awake, alert and oriented x3. Cranial nerves 2 through 12 are grossly intact. - Labs CBC & Chem 7: 08/18/20 10:45 08/17/20 05:39 Labs: Microbiology - Last 24 Hours (Table) 08/15/20 11:51 Blood Culture - Preliminary Blood No Growth after 72 hours Assessment and Plan Assessment: Acute seizure disorder with breakthrough seizures and status epilepticus Possible bilateral aspiration pneumonia Possible upper gastrointestinal bleeding with hematemesis, possible gastritis History of closed head injury History of seizure disorder History of depression Congestive heart failure ruled out Recommendations and discussion: Recommend to continue with current medications, management, and symptomatic treatment. Multiple medical consultations following including pulmonary, cardiology, and GI along with neurology. No further seizure-like activity noted. Patient per mother at the bedside continues to spit food out although underwent a barium study which was negative for aspiration. GI not planning on any surgical or endoscopic intervention. To continue with seizure precautions and antiepileptic medications. Will repeat a.m. labs and monitor closely. Due to multiple complex medical issues, prognosis is guarded. Further recommendations to follow. Possible discharge in 24 hours.
--- NOTE | 2020-08-19 16:17 | P.PN ---
Subjective Progress Note Date: 08/19/20 Principal diagnosis: Coffee-ground emesis This is a pleasant 35-year-old male patient with a history of traumatic brain injury and seizure disorder was submitted to the hospital after he had multiple seizures lasting for approximately 2 hours. During that time he was noted to h ave several episodes of emesis, some noted to be coffee-ground in color. Speech pathology saw him for a swallowing evaluation, did not know any signs of aspiration but recommended considering esophagram. Not applied barium swallow completed yesterday that showed no aspiration demonstrated, mild pr esbyesophagus, small self reducing sliding type hiatal hernia. Nursing reported that the patient had clear liquids yesterday evening and did have some regurgitation-emesis following. The patient's mother states that this is a common thing for the patient. He has been having some regurgitation after eating. Denies any abdominal pain. Objective - Vital Signs Vital signs: Vital Signs Temp 98.4 F 08/19/20 12:48 Pulse 79 08/19/20 12:48 Resp 17 08/19/20 12:48 BP 123/83 08/19/20 12:48 Pulse Ox 93 L 08/19/20 12:48 Intake & Output 08/18/20 08/19/20 08/19/20 18:59 06:59 18:59 Intake Total 340 240 Output Total 300 Balance 40 240 Intake: Intake, IV Titration 340 240 Amount Levofloxacin 500Mg-D5w 100 Pmx 500 mg In Dextrose/ Water 1 100ml.bag @ 100 mls/hr IVPB Q24H [facility] Rx#: [id number] Sodium Chloride 0.9% 1, 240 240 000 ml @ 20 mls/hr IV . Q24H [facility] Rx#:[id number] Output: Urine 300 Other: Voiding Method Urinal Urinal Urinal # Voids 2 # Emeses 2 - Exam General appearance: The patient is alert, nonverbal, appears in no acute dis tress. HET: Head is normocephalic and atraumatic. Conjunctiva pink. Sclera anicteric. Neck: Supple without lymphadenopathy. Abdomen: Soft, nontender, nondistended with bowel sounds. No guarding or rigidity. Extremities: Normal skin color and turgor. No pedal edema Skin: No rashes, no jaundice Neurological: History of traumatic brain injury. Nonverbal. - Labs CBC & Chem 7: 08/18/20 10:45 08/17/20 05:39 Labs: Microbiology - Last 24 Hours (Table) 08/15/20 11:51 Blood Culture - Preliminary Blood No Growth after 96 hours Assessment and Plan (1) Coffee ground emesis Narrative/Plan: This is a 35-year-old male patient with a history of traumatic brain injury who had multiple seizures followed by episodes of vomiting, with coffee-ground emesi s noted. He has had no further bleeding since being in the hospital. Hemoglobin was stable on admission at 13.2 and remained stable at 12.7. Patient has had no further coffee-ground emesis. He is having some episodes of regurgitation after eating and clear liquids. A modified barium swallow was ordered and reviewed showing no aspiration, mild presbyesophagus and a small self reducing sliding hiatal hernia. Current Visit: Yes Status: Acute Code(s): K92.0 - HEMATEMESIS SNOMED Code(s): 91560578 (2) Status epilepticus Narrative/Plan: History of seizure disorder. Patient with multiple seizures yesterday that reportedly lasted for 2 hours, during which time he had nausea and vomiting of coffee-ground emesis. Seizures have resolved. Neurology is consulted and managing. Current Visit: Yes Status: Acute Code(s): G40.901 - EPILEPSY, UNSP, NOT INTRACTABLE, WITH STATUS EPILEPTICUS SNOMED Code(s): 605371299 (3) History of closed head injury Current Visit: Yes Status: Acute Code(s): Z87.820 - PERSONAL HISTORY OF TRAUMATIC BRAIN INJURY SNOMED Code(s): 35735493738498 Plan: 1. Supportive care 2. Protonix 40 mg twice a day 3. Upper endoscopy offered and discussed with patient and mother. The patient's mother is declining at this time and feels that it would be too invasive for her son. 4. Modified barium swallow with GI series ordered 5. Full liquid diet 6. We will continue to follow with you closely. Thank you for this consultation Dr. Mai Encarnacion I agree with the dictator's note, documented as a scribe by Maria Elena Baldwin.
[2020-08-19] MEDS: SODIUM CHLORIDE 0.9% 1,000 ML IV SCH (18:32)
[2020-08-19] MEDS: CITALOPRAM HYDROBROMIDE 10 MG TAB PO SCH (20:56)
[2020-08-20] MEDS: PANTOPRAZOLE 40 MG/10 ML VIAL IVP SCH ×2 (08:33→21:08)
[2020-08-20] MEDS: MULTIVITAMINS, THERA 1 EACH TAB PO SCH (09:33)
[2020-08-20] MEDS: BACLOFEN 10 MG TAB PO SCH ×3 (09:33→21:08)
[2020-08-20] MEDS: lamoTRIgine 25 MG TAB PO SCH ×2 (09:33→21:08)
[2020-08-20] MEDS: lamoTRIgine 100 MG TAB PO SCH ×2 (09:33→21:08)
--- NOTE | 2020-08-20 09:40 | FL ---
EXAMINATION TYPE: FL UGI air w esophagus DATE OF EXAM: 08/20/2020 COMPARISON: Esophagram 2 days ago. HISTORY: Recurrent vomiting. TECHNIQUE: A single contrast UGI study is performed. A total 2 minutes 41 seconds fluoroscopic time utilized during procedure. 32 images saved to PACS. FINDINGS: Battery Service Technician image of the abdomen shows some residual contrast from esophagram 2 days earlier jania ling the right and proximal one half transverse colon along with normal-appearing appendix. Overall n onobstructive bowel gas pattern. Underlying dextroconvex rotary scoliosis or scoliotic positioning in the lumbar spine is present. Exam is noted again suboptimal due to patient's underlying mental impairment, only single contrast ba rium in semiupright supine positioning can be performed. The esophagus shows satisfactory motility an d emptying into stomach when patient drank. Small sliding-type hiatal hernia. No stricture. The stomach shows satisfactory distensibility. Moderate gastroesophageal reflux was seen during real time performance of this study. Some mild to moderate delay in emptying from stomach into duodenal sw eep. There is eventual filling of duodenal sweep which appears unremarkable, ligament of Treitz noted in satisfactory position. IMPRESSION: Suboptimal study. Small sliding-type hiatal hernia redemonstrated. Moderate gastroesophag eal reflux identified on this study. No obstruction seen.
[2020-08-20 10:32] LABS: Basophils # (A) 0.02 X 10*3/uL (0.00-0.10); Basophils % (A) 0.3 %; Eosinophils # (A) 0.17 X 10*3/uL (0.04-0.35); Eosinophils % (A) 2.6 %; HCT 37.4 % (39.6-50.0); HGB 12.2 g/dL (13.0-17.0); Lymphocytes # (A) 2.04 X 10*3/uL (0.90-5.00); Lymphocytes % (A) 31.2 %; MCH 27.3 pg (27.0-32.0); MCHC 32.6 g/dL (32.0-37.0); MCV 83.7 fL (80.0-97.0); Mean Platelet Volume 9.8 fL (9.5-12.2); Monocytes # (A) 0.47 X 10*3/uL (0.20-1.00); Monocytes % (A) 7.2 %; Neutrophils # (A) 3.82 X 10*3/uL (1.80-7.70); Neutrophils % (A) 58.4 %; Platelet Count 245 X 10*3/uL (140-440); RBC 4.47 X 10*6/uL (4.40-5.60); RDW 13.2 % (11.5-14.5); WBC 6.54 X 10*3/uL (4.50-10.00)
--- NOTE | 2020-08-20 11:40 | P.PN ---
Subjective Progress Note Date: 08/20/20 35-year-old male patient with known history of positive injury at the age of 9. At that time, the patient had a serious injury requiring long-term intubation mechanical ventilation the patient also required a tracheostomy tube insertion. Since then, the patient also developed an epilepsy disorder. The patient was brought in yesterday to the emergency department after having recurrent bouts of seizures starting Sunday which is 2 days ago. The patient was having jerks focally involving the upper and lower extremity without losing complete consciousness. On Sunday, he felt better and on Sunday he started developing ongoing seizure activity and during the process he was seizing around 3-5 linda rani at a time and he would stop and the mother noted that he would have had some aspiration. The patient takes Lamictal 100 mg by mouth twice a day and in the emergency department he was given a milligram of Ativan. Currently is awake. He is able to follow some simple commands. He does have a weak cough. No previous aspiration. No previous pneumonias. His chest x-ray is showing smaller lung volumes and there is a suspicion for diaphragmatic weakness/paralysis 9 in the lung volumes are small and the diaphragms are settings high in the chest. Neurology has been evaluating this patient re garding seizure activity. The patient has had definitive disease with other antiepileptic medications the patient was kept on Lamictal for now and the dose was modified. 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 The white cell count was at 7 with a glucose of 95 and a calcium level of 9.1 and the liver function tests were normal, UA was negative and the COVID 19 testing was also negative by PCR. On 08/17/2020, the patient is slightly more lethargic. I was told that the patient around 3 AM he had a seizure which was another breakthrough seizure and following the seizures the patient had some emesis of brown material. The patient has known gastric distention. No reported aspiration. He is currently on Levaquin. Neurology was made aware of the breakthrough seizures. Currently, he is awake and he is not having any signs of respiratory distress. On room air oxygen. Abdomen is nondistended. Renal function is stable. Creatinine is at 0.68 and the white cell count is at 6.8 with a hemoglobin of 13.2. He is still on Lamictal at a dose of 125 mg twice a day. Noted the patient was also given a dose of Ativan at a time of his seizure 1 mg IV push. On 08/18/2020, the patient is being seen for a follow-up. He remains on Lamictal on 25 mg by mouth twice a day regarding his seizures. The patient also has been on Levaquin for questionable aspiration pneumonia. Chest x-ray was done and showed some atelectatic changes in the left lung base. No signs of respiratory distress. Both of 94% room air oxygen. The patient is afebrile for now. No nausea. No vomiting. No diarrhea. No abdominal pain. Patient did not have any seizure activity and he slept well overnight and the mother was at the bedside. The abdomen is nondistended. The patient is awake and alert and he does have some bowel sounds. The patient is seen today 08/19/2020 in follow-up on the regular medical floor. His mom is at the bedside. He has not had any seizures in the past 24 hours. He remains on Lamictal. He is currently resting quite comfortably in bed. Maintaining O2 saturations in the 90s on room air. He did undergo a swallowing evaluation that revealed no evidence of aspiration, mild presbyesophagus, small self reducing sliding hiatal hernia. He was however given liquids that he seems to spit out more than choke on according to nursing staff. He remains nothing by mouth currently. GI services are on the case. Blood cultures reveal no growth. Labs are pending today. He remains on antibiotics in the form of Levaquin. 5 2020 the patient is seizure free and is doing well on the room air oxygen. No respiratory distress. No cough. No sputum production. Modified barium swallow was done and the patient showed no signs of any aspiration. He is able to tolerate his diet. He had one episode of spitting back his milk after he ingested it. He is completing a total of 5 day course of Levaquin. Cultures of been negative. No other significant events overnight. The mother is at the bedside. Discussed the case with the medical team. Objective - Vital Signs Vital signs: Vital Signs Temp 98.4 F 08/20/20 04:22 Pulse 66 08/20/20 04:22 Resp 20 08/20/20 04:22 BP 123/82 08/20/20 04:22 Pulse Ox 97 08/20/20 04:22 Intake & Output 08/19/20 08/20/20 08/20/20 18:59 06:59 18:59 Intake Total 300 340 Balance 300 340 Intake: Intake, IV Titration 300 240 Amount Levofloxacin 500Mg-D5w 100 Pmx 500 mg In Dextrose/ Water 1 100ml.bag @ 100 mls/hr IVPB Q24H [facility] Rx#: [id number] Sodium Chloride 0.9% 1, 200 240 000 ml @ 20 mls/hr IV . Q24H [facility] Rx#:[id number] Oral 100 Other: Voiding Method Urinal Urinal # Voids 3 2 - Exam Obese and, comfortable, 35-year-old gentleman, on room air, not in acute respiratory distress, BMI 35.2 Head exam was generally normal. There was no scleral icterus or corneal arcus. Mucous membranes were moist. Neck was supple and without jugular venous distension, thyromegaly, or carotid bruits. Carotids were easily palpable bilaterally. There was no adenopathy. Patient has significant crowding of the posterior oropharynx with a Mallampati class IV Lungs sounds are diminished in lung base bilaterally and the patient's inspiratory efforts are quite weak and the breath sounds are overall diminished throughout the lung hooker. Cardiac exam revealed the PMI to be normally situated and sized. The rhythm was regular and no extrasystoles were noted during several minutes of auscultation. The first and second heart sounds were normal and physiologic splitting of the second heart sound was noted. There were no murmurs, rubs, clicks, or gallops. Abdominal exam revealed normal bowel sounds. The abdomen was soft, non-tender, and without masses, organomegaly, or appreciable enlargement of the abdominal aorta. Examination of the extremities revealed easily palpable radial, femoral and pedal pulses. There was no cyanosis, clubbing or edema. Examination of the skin revealed no evidence of significant rashes, suspicious appearing nevi or other concerning lesions. Neurologically, the patient is awake and alert and the patient has chronic contractures in all 4 extremities and chronic spasticity. - Labs CBC & Chem 7: 08/20/20 06:52 08/17/20 05:39 Labs: Abnormal Lab Results - Last 24 Hours (Table) 08/20/20 Range/Units 06:52 Hgb 12.2 L (13.0-17.0) g/dL Hct 37.4 L (39.6-50.0) % Microbiology - Last 24 Hours (Table) 08/15/20 11:51 Blood Culture - Preliminary Blood No Growth after 96 hours Assessment and Plan Plan: 1 aspiration suspected. Nevertheless, the patient has signs of chronic respiratory insufficiency. The chest x-ray shows smaller lung volumes with elevation of the diaphragms bilaterally, and this obviously raises the concern for diaphragmatic paralysis bilaterally and chronic respiratory insufficiency. The patient has a very weak cough. The patient's chest x-ray does not reveal any acute pulmonary infection or pneumonia. The patient is currently afebrile. Chest x-ray showed some limited atelectatic changes in lung bases. He remains on Levaquin I will treat the patient for a total of 5 days. 2 history of closed head injury 3 history of chronic respiratory failure post closed head injury and the patient required insertion and removal of tracheostomy tube 4 history of epilepsy post closed head injury and the patient was hospitalized for breakthrough seizures 5 obesity. plan respiratory status is stable. Completing a total of 5 day course of Levaquin. Aspiration precautions. Possible discharge today Lamictal 125 mg by mouth twice a day Monitor the fever pattern, currently afebrile Swallow study was noted. Provide diet and dietary advice was given
[2020-08-20 13:01] VITALS: BMI 35.2
--- NOTE | 2020-08-20 14:21 | P.PN ---
Subjective Progress Note Date: 08/20/20 Principal diagnosis: Coffee-ground emesis This is a pleasant 35-year-old male patient with a history of traumatic brain injury and seizure disorder was submitted to the hospital after he had multiple seizures lasting for approximately 2 hours. During that time he was noted to h ave several episodes of emesis, some noted to be coffee-ground in color. Speech pathology saw him for a swallowing evaluation, did not know any signs of aspiration but recommended considering esophagram. Barium swallow completed two days ago that showed no aspiration demonstrated, mild presbyesophagus, small self reducing sliding type hiatal hernia. Patient is overall tolerating his Dahl quit diet, with some regurgitation. Denies any abdominal pain, nausea, and no further seizure activity since admission. Upper GI series ordered and reviewed. Sub-optimal study. Small sliding hiatal hernia redemonstrated. Moderate gastroesophageal reflux identified on this study. No obstruction seen. Objective - Vital Signs Vital signs: Vital Signs Temp 98.4 F 08/20/20 04:22 Pulse 66 08/20/20 04:22 Resp 20 08/20/20 04:22 BP 123/82 08/20/20 04:22 Pulse Ox 97 08/20/20 04:22 Intake & Output 08/19/20 08/20/20 08/20/20 18:59 06:59 18:59 Intake Total 300 340 Balance 300 340 Intake: Intake, IV Titration 300 240 Amount Levofloxacin 500Mg-D5w 100 Pmx 500 mg In Dextrose/ Water 1 100ml.bag @ 100 mls/hr IVPB Q24H [facility] Rx#: [id number] Sodium Chloride 0.9% 1, 200 240 000 ml @ 20 mls/hr IV . Q24H [facility] Rx#:[id number] Oral 100 Other: Voiding Method Urinal Urinal # Voids 3 2 - Exam General appearance: The patient is alert, nonverbal, appears in no acute distress. HET: Head is normocephalic and atraumatic. Conjunctiva pink. Sclera anicteric. Neck: Supple without lymphadenopathy. Abdomen: Soft, nontender, nondistended with bowel sounds. No guarding or rigidity. Extremities: Normal skin color and turgor. No pedal edema Skin: No rashes, no jaundice Neurological: History of traumatic brain injury. Limited communication. - Labs CBC & Chem 7: 08/20/20 06:52 08/17/20 05:39 Labs: Abnormal Lab Results - Last 24 Hours (Table) 08/20/20 Range/Units 06:52 Hgb 12.2 L (13.0-17.0) g/dL Hct 37.4 L (39.6-50.0) % Microbiology - Last 24 Hours (Table) 08/15/20 11:51 Blood Culture - Preliminary Blood No Growth after 96 hours Assessment and Plan (1) Coffee ground emesis Narrative/Plan: This is a 35-year-old male patient with a history of traumatic brain injury who had multiple seizures followed by episodes of vomiting, with coffee-ground emesis noted. He has had no further bleeding since being in the hospital. Hemoglobin was stable on admission at 13.2 and remained stable at 12.7. Patient has had no further coffee-ground emesis. He is having some episodes of regurgitation after eating and clear liquids. A modified barium swallow was ordered and reviewed showing no aspiration, mild presbyesophagus and a small self reducing sliding hiatal hernia. Upper GI series impression states suboptimal study. Small sliding-type hiatal hernia redemonstrated. Moderate gastroesophageal reflux identified in this study no obstruction seen. Current Visit: Yes Status: Acute Code(s): K92.0 - HEMATEMESIS SNOMED Code(s): 74040882 (2) Status epilepticus Narrative/Plan: History of seizure disorder. Patient with multiple seizures yesterday that reportedly lasted for 2 hours, during which time he had nausea and vomiting of coffee-ground emesis. Seizures have resolved. Neurology is consulted and shavonne hagan. Current Visit: Yes Status: Acute Code(s): G40.901 - EPILEPSY, UNSP, NOT INTRACTABLE, WITH STATUS EPILEPTICUS SNOMED Code(s): 563634998 (3) History of closed head injury Current Visit: Yes Status: Acute Code(s): Z87.820 - PERSONAL HISTORY OF TRAUMATIC BRAIN INJURY SNOMED Code(s): 72320130578103 Plan: 1. Supportive care 2. Protonix 40 mg twice a day 3. Upper endoscopy offered and discussed with patient and mother. The patient's mother is declining at this time and feels that it would be too invasive for her son. 4. Per GI series ordered and reviewed showing gastroesophageal reflux. 5. Advance diet as tolerated 6. Discussed with mother importance of sitting upright after eating, continuation of proton pump inhibitor twice a day and follow-up with gastroenterology in 2-4 weeks. The patient may be discharged home from a gastroenterology standpoint. We will sign off at this time. Dr. David I agree with the dictator's note, documented as a scribe by Maria Elena Baldwin.
[2020-08-20] MEDS: LEVOFLOXACIN 500MG-D5W PMX 500 MG in DEXTROSE/WATER 1 100ML.BAG IVPB SCH (14:41)
[2020-08-20] MEDS: SODIUM CHLORIDE 0.9% 1,000 ML IV SCH (17:27)
--- NOTE | 2020-08-20 21:01 | P.PN ---
Progress Note - Text Progress Note Date: 08/20/20 History of presenting complaint: This is a 35-year-old male who was admitted with seizure disorder possible aspiration pneumonia and is being closely monitored. Patient was also noted to have evidence of coffee-ground emesis per mother and hemoglobin has remained stable. Barium swallow showed no aspiration and mild depressed esophagus and a small self reducing sliding type hiatal hernia. Patient is alert and oriented 1-2 and follow simple commands. Today-laying in bed. Did tolerate some in. Did regurgitate some. Mother at the bedside. No cough no fever. Review of systems difficult to obtain because patient's communication is limited Active Medications Baclofen (Baclofen 10 Mg Tab) 5 mg PO TID@0730,1400,2200 [facility] Last Admin: 08/20/20 14:41 Dose: 5 mg Documented by: Citalopram Hydrobromide (Citalopram Hydrobromide 10 Mg Tab) 10 mg PO HS [facility] Last Admin: 08/19/20 20:56 Dose: 10 mg Documented by: Sodium Chloride (Saline 0.9%) 1,000 mls @ 20 mls/hr IV .Q24H [facility] Last Admin: 08/20/20 17:27 Dose: Not Given Documented by: Levofloxacin 500 mg/ IV (Solution) 100 mls @ 100 mls/hr IVPB Q24H [facility] Last Admin: 08/20/20 14:41 Dose: 100 mls/hr Documented by: Lamotrigine (Lamotrigine 25 Mg Tab) 25 mg PO BID [facility] Last Admin: 08/20/20 09:33 Dose: 25 mg Documented by: Lamotrigine (Lamotrigine 100 Mg Tab) 100 mg PO BID [facility] Last Admin: 08/20/20 09:33 Dose: 100 mg Documented by: Lorazepam (Lorazepam 2 Mg/Ml Inj) 1 mg IV Q4H PRN PRN Reason: Seizures Last Admin: 08/17/20 04:39 Dose: 1 mg Documented by: Multivitamins (Multivitamins, Thera 1 Each Tab) 1 each PO DAILY [facility] Last Admin: 08/20/20 09:33 Dose: 1 each Documented by: Naloxone HCl (Naloxone 0.4 Mg/Ml 1 Ml Vial) 0.2 mg IV Q2M PRN PRN Reason: Opioid Reversal Ondansetron HCl (Ondansetron 4 Mg/2 Ml Vial) 4 mg IVP Q6HR PRN PRN Reason: Nausea And Vomiting Last Admin: 08/18/20 20:45 Dose: 4 mg Documented by: Pantoprazole Sodium (Pantoprazole 40 Mg/10 Ml Vial) 40 mg IVP BID [facility] Last Admin: 08/20/20 08:33 Dose: 40 mg Documented by: On examination: VITAL SIGNS: [98.4, 68, 23, 1 23 x 82, 97% on room air] GENERAL APPEARANCE: 35.2, laying in bed, awake EYES: Pupils equal. Conjunctiva normal. NECK: JVD not raised. Mass not palpable. RESPIRATORY: Respiratory effort increased. Lungs clear to auscultation. CARDIOVASCULAR: First and second sounds normal. No edema. ABDOMEN: Soft. Liver and spleen not palpable. No tenderness. No mass palpable. PSYCHIATRY: Patient not able to speak Investigations: White count 6.5 hemoglobin 12.2 platelets 245 potassium 3.7 creatinine 0.68 Barium swallow-small sliding type hiatal hernia redemonstrated. 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 Continue with Lamictal. -Aspiration pneumonitis following seizure. Patient on Levaquin. This is suspected to be a chemical pneumonitis. An antibiotic can be discontinued. -Moderate GERD. Aspiration precautions with feeding -Depression not otherwise specified -Chronic medical debility -Coffee-ground emesis likely from gastritis. Patient on PPI. Care was discussed at length with the patient's mother.. Reinforced aspiration precautions, smaller meals, spaced out. Discussed with Dr. Aguirre. AK antibiotic. Patient should be able to be discharged tomorrow. Prognosis guarded. Studies 5
[2020-08-20] MEDS: CITALOPRAM HYDROBROMIDE 10 MG TAB PO SCH (21:08)
[2020-08-20] MEDS: ENOXAPARIN 40 MG/0.4 ML SYRINGE SQ SCH (21:56)
[2020-08-21 05:28] VITALS: TEMP 98.1
[2020-08-21] MEDS ORDERED: PANTOPRAZOLE 40 MG TABLET PO SCH (07:30)
[2020-08-21] MEDS: BACLOFEN 10 MG TAB PO SCH ×2 (10:14→12:51)
[2020-08-21] MEDS: lamoTRIgine 100 MG TAB PO SCH (10:16)
[2020-08-21] MEDS: MULTIVITAMINS, THERA 1 EACH TAB PO SCH (10:17)
[2020-08-21] MEDS: ENOXAPARIN 40 MG/0.4 ML SYRINGE SQ SCH (10:18)
[2020-08-21] MEDS: lamoTRIgine 25 MG TAB PO SCH (10:18)
[2020-08-21 13:36] VITALS: BP 149/103; PULSE 110; RESP 20
--- NOTE | 2020-08-21 13:53 | P.PN ---
Subjective Progress Note Date: 08/21/20 35-year-old male patient with known history of positive injury at the age of 9. At that time, the patient had a serious injury requiring long-term intubation mechanical ventilation the patient also required a tracheostomy tube insertion. Since then, the patient also developed an epilepsy disorder. The patient was brought in yesterday to the emergency department after having recurrent bouts of seizures starting Sunday which is 2 days ago. The patient was having jerks focally involving the upper and lower extremity without losing complete consciousness. On Sunday, he felt better and on Sunday he started developing ongoing seizure activity and during the process he was seizing around 3-5 linda rani at a time and he would stop and the mother noted that he would have had some aspiration. The patient takes Lamictal 100 mg by mouth twice a day and in the emergency department he was given a milligram of Ativan. Currently is awake. He is able to follow some simple commands. He does have a weak cough. No previous aspiration. No previous pneumonias. His chest x-ray is showing smaller lung volumes and there is a suspicion for diaphragmatic weakness/paralysis 9 in the lung volumes are small and the diaphragms are settings high in the chest. Neurology has been evaluating this patient re garding seizure activity. The patient has had definitive disease with other antiepileptic medications the patient was kept on Lamictal for now and the dose was modified. 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 The white cell count was at 7 with a glucose of 95 and a calcium level of 9.1 and the liver function tests were normal, UA was negative and the COVID 19 testing was also negative by PCR. On 08/17/2020, the patient is slightly more lethargic. I was told that the patient around 3 AM he had a seizure which was another breakthrough seizure and following the seizures the patient had some emesis of brown material. The patient has known gastric distention. No reported aspiration. He is currently on Levaquin. Neurology was made aware of the breakthrough seizures. Currently, he is awake and he is not having any signs of respiratory distress. On room air oxygen. Abdomen is nondistended. Renal function is stable. Creatinine is at 0.68 and the white cell count is at 6.8 with a hemoglobin of 13.2. He is still on Lamictal at a dose of 125 mg twice a day. Noted the patient was also given a dose of Ativan at a time of his seizure 1 mg IV push. On 08/18/2020, the patient is being seen for a follow-up. He remains on Lamictal on 25 mg by mouth twice a day regarding his seizures. The patient also has been on Levaquin for questionable aspiration pneumonia. Chest x-ray was done and showed some atelectatic changes in the left lung base. No signs of respiratory distress. Both of 94% room air oxygen. The patient is afebrile for now. No nausea. No vomiting. No diarrhea. No abdominal pain. Patient did not have any seizure activity and he slept well overnight and the mother was at the bedside. The abdomen is nondistended. The patient is awake and alert and he does have some bowel sounds. The patient is seen today 08/19/2020 in follow-up on the regular medical floor. His mom is at the bedside. He has not had any seizures in the past 24 hours. He remains on Lamictal. He is currently resting quite comfortably in bed. Maintaining O2 saturations in the 90s on room air. He did undergo a swallowing evaluation that revealed no evidence of aspiration, mild presbyesophagus, small self reducing sliding hiatal hernia. He was however given liquids that he seems to spit out more than choke on according to nursing staff. He remains nothing by mouth currently. GI services are on the case. Blood cultures reveal no growth. Labs are pending today. He remains on antibiotics in the form of Levaquin. 5 2020 the patient is seizure free and is doing well on the room air oxygen. No respiratory distress. No cough. No sputum production. Modified barium swallow was done and the patient showed no signs of any aspiration. He is able to tolerate his diet. He had one episode of spitting back his milk after he ingested it. He is completing a total of 5 day course of Levaquin. Cultures of been negative. No other significant events overnight. The mother is at the bedside. Discussed the case with the medical team. 08/21/2020, doing well, no complaints, no seizure activity, no respiratory distress, the patient will be discharged home, no need for any further antibiotic treatment. Objective - Vital Signs Vital signs: Vital Signs Temp 98.1 F 08/21/20 13:35 Pulse 110 H 08/21/20 13:35 Resp 20 08/21/20 13:35 BP 149/103 08/21/20 13:35 Pulse Ox 92 L 08/21/20 13:35 Intake & Output 08/20/20 08/21/20 08/21/20 18:59 06:59 18:59 Intake Total 740 Balance 740 Weight 81.81 kg Intake: Intake, IV Titration 240 Amount Sodium Chloride 0.9% 1, 240 000 ml @ 20 mls/hr IV . Q24H SARAH Rx#:[id number] Oral 500 Other: Voiding Method Urinal Urinal # Voids 4 3 1 - Exam Obese and, comfortable, 35-year-old gentleman, on room air, not in acute respiratory distress, BMI 35.2 Head exam was generally normal. There was no scleral icterus or corneal arcus. Mucous membranes were moist. Neck was supple and without jugular venous distension, thyromegaly, or carotid bruits. Carotids were easily palpable bilaterally. There was no adenopathy. Patient has significant crowding of the posterior oropharynx with a Mallampati class IV Lungs sounds are diminished in lung base bilaterally and the patient's inspiratory efforts are quite weak and the breath sounds are overall diminished throughout the lung hooker. Cardiac exam revealed the PMI to be normally situated and sized. The rhythm was regular and no extrasystoles were noted during several minutes of auscultation. The first and second heart sounds were normal and physiologic splitting of the second heart sound was noted. There were no murmurs, rubs, clicks, or gallops. Abdominal exam revealed normal bowel sounds. The abdomen was soft, non-tender, and without masses, organomegaly, or appreciable enlargement of the abdominal aorta. Examination of the extremities revealed easily palpable radial, femoral and pedal pulses. There was no cyanosis, clubbing or edema. Examination of the skin revealed no evidence of significant rashes, suspicious appearing nevi or other concerning lesions. Neurologically, the patient is awake and alert and the patient has chronic contractures in all 4 extremities and chronic spasticity. - Labs CBC & Chem 7: 08/20/20 06:52 08/17/20 05:39 Labs: Microbiology - Last 24 Hours (Table) 08/15/20 11:51 Blood Culture - Preliminary Blood No Growth after 120 hours Assessment and Plan Plan: 1 aspiration suspected. Nevertheless, the patient has signs of chronic respiratory insufficiency. The chest x-ray shows smaller lung volumes with elevation of the diaphragms bilaterally, and this obviously raises the concern for diaphragmatic paralysis bilaterally and chronic respiratory insufficiency. The patient has a very weak cough. The patient's chest x-ray does not reveal any acute pulmonary infection or pneumonia. the patient completed the course of antibiotics 2 history of closed head injury 3 history of chronic respiratory failure post closed head injury and the patient required insertion and removal of tracheostomy tube 4 history of epilepsy post closed head injury and the patient was hospitalized for breakthrough seizures 5 obesity. plan Lamictal 125 mg by mouth twice a day , seizure free, respiratory status is stable. Completing a total of 5 day course of Levaquin. Aspiration precautions. discharge home today
[2020-08-21] MEDS: SODIUM CHLORIDE 0.9% 1,000 ML IV SCH (14:53)
--- NOTE | 2020-08-21 22:58 | P.DS ---
Providers Date of admission: 08/15/20 13:05 Expected date of discharge: 08/21/20 Attending physician: Jovan Ochoa Consults: 08/15/20 13:05 Consult Physician Urgent Consulting Provider: Noah Camacho Consult Reason/Comments: seizures, status epilepticus Do you want consulting provider notified?: Already Contacted 08/16/20 10:33 Consult Physician Routine Consulting Provider: Benedict Crowder Consult Reason/Comments: Aspiration Pneumonia Do you want consulting provider notified?: Yes Primary care physician: [facility] Course: History of presenting complaint: This is a 35-year-old male who was admitted with seizure disorder possible aspiration pneumonia and is being closely monitored. Patient was also noted to have evidence of coffee-ground emesis per mother and hemoglobin has remained stable. Barium swallow showed no aspiration and mild depressed esophagus and a small self reducing sliding type hiatal hernia. Patient is alert and oriented 1-2 and follow simple commands. Aspiration felt to be chemical pneumonitis. Antibiotic discontinued. Today-stable. Doing well. Mother at the bedside. Care was discussed with the mother.. Consultation: Dr. Aguirre in partners from pulmonary Dr. Peters in partners from GI Dr. Crowder from neurology On examination: VITAL SIGNS: 98.1, 110, 20, 116/87, 94% room air GENERAL APPEARANCE: laying in bed, awake EYES: Pupils equal. Conjunctiva normal. NECK: JVD not raised. Mass not palpable. RESPIRATORY: Respiratory effort increased. Lungs clear to auscultation. CARDIOVASCULAR: First and second sounds normal. No edema. ABDOMEN: Soft. Liver and spleen not palpable. No tenderness. No mass palpable. PSYCHIATRY: Patient not able to speak NEUROLOGICAL: Following simple commands Investigations: White count 6.5 hemoglobin 12.2 platelets 245 potassium 3.7 creatinine 0.68 Barium swallow-small sliding type hiatal hernia redemonstrated. 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 Continue with Lamictal. -Aspiration pneumonitis following seizure. Patient on Levaquin. This is suspected to be a chemical pneumonitis. Antibiotic discontinued. -Moderate GERD. Aspiration precautions with feeding -Depression not otherwise specified -Chronic medical debility -Coffee-ground emesis likely from gastritis. Patient on PPI. Disposition: Home Health Concerns: have patient sit up fully 90 degress for meals, small frequent meals are best. Eat slowly Plan - Discharge Summary Discharge Rx Participant: No New Discharge Prescriptions: New lamoTRIgine [LaMICtal] 25 mg PO BID #60 tab Omeprazole [PriLOSEC] 20 mg PO AC-BID #60 cap Continue lamoTRIgine [LaMICtal] 100 mg PO BID Multivitamins, Thera [Multivitamin (formulary)] 1 tab PO DAILY Citalopram Hydrobromide [CeleXA] 10 mg PO HS Baclofen [Lioresal] 5 mg PO TID@0730,1400,2200 Vitamin B Complex 1 cap PO DAILY Ascorbic Acid [Vitamin C] 500 mg PO DAILY Discharge Medication List Baclofen [Lioresal] 5 mg PO TID@0730,1400,2200 10/17/18 [History] Citalopram Hydrobromide [CeleXA] 10 mg PO HS 10/17/18 [History] Multivitamins, Thera [Multivitamin (formulary)] 1 tab PO DAILY 10/17/18 [History] lamoTRIgine [LaMICtal] 100 mg PO BID 10/17/18 [History] Ascorbic Acid [Vitamin C] 500 mg PO DAILY 08/15/20 [History] Vitamin B Complex 1 cap PO DAILY 08/15/20 [History] Omeprazole [PriLOSEC] 20 mg PO AC-BID #60 cap 08/21/20 [Rx] lamoTRIgine [LaMICtal] 25 mg PO BID #60 tab 08/21/20 [Rx] Follow up Appointment(s)/Referral(s): Rajinder-neurologistdr [Other] - 1 Week (call and schedule follow-up appointment with your neurologist, call office on Sunday, currently closed) Pricila Encarnacion MD [STAFF PHYSICIAN] - 1 Week (call office on Sunday to schedule follow up appointment, office is currently closed) Marck Contreras DO [Primary Care Provider] - 1-2 days (call on Sunday to schedule hospital follow-up, office is currently closed.) Patient Instructions/Handouts: Hiatal Hernia (DC), Gastroesophageal Reflux Disease (DC), Aspiration Precautions (DC) Activity/Diet/Wound Care/Special Instructions: aspiration precautions Discharge Disposition: HOME WITH HOME HEALTH SERVICES
== END 2020-08-21 15:07 | disposition home or self-care (01) | DRG 100 ==
LOC: EC 09:35 → 5NMEDONC 13:05
PROVIDERS: ADMIT Hospitalist; ATTEND Hospitalist
DX: G40.101 Localization-related (focal) (partial) symptomatic epilepsy and epileptic syndromes with simple partial seizures, not intractable, with status epilepticus (principal); K29.71 Gastritis, unspecified, with bleeding; J96.10 Chronic respiratory failure, unspecified whether with hypoxia or hypercapnia; J68.0 Bronchitis and pneumonitis due to chemicals, gases, fumes and vapors; J98.6 Disorders of diaphragm; S06.9X0S Unspecified intracranial injury without loss of consciousness, sequela; G31.9 Degenerative disease of nervous system, unspecified; Z20.822 Contact with and (suspected) exposure to COVID-19; F32.9 Major depressive disorder, single episode, unspecified; I51.7 Cardiomegaly; E66.9 Obesity, unspecified; R26.9 Unspecified abnormalities of gait and mobility; R00.0 Tachycardia, unspecified; K44.9 Diaphragmatic hernia without obstruction or gangrene; K22.8 Other specified diseases of esophagus; K21.9 Gastro-esophageal reflux disease without esophagitis; R53.81 Other malaise; V89.2XXS Person injured in unspecified motor-vehicle accident, traffic, sequela; Z68.35 Body mass index [BMI] 35.0-35.9, adult; Z79.899 Other long term (current) drug therapy; Z86.73 Personal history of transient ischemic attack (TIA), and cerebral infarction without residual deficits; Z88.0 Allergy status to penicillin; Z88.2 Allergy status to sulfonamides
CPT/HCPCS: 36415; 70450; 71045; 71046; 74220; 74246; 80053; 80175; 81003; 83735; 83880; 84484; 85025; 85027; 87040; 87635; 93005; 93306; 94760; 96361; 96374; 99285

== ENCOUNTER 2022-07-09 22:47 | Inpatient (IN) | payer MEDICARE ==
[2022-07-09] MEDS ORDERED: SODIUM CHLORIDE 0.9% 1,000 ML IV STA (23:06)
[2022-07-09] MEDS ORDERED: ONDANSETRON 4 MG/2 ML VIAL IVP STA (23:06)
[2022-07-09] MEDS ORDERED: PANTOPRAZOLE 40 MG/10 ML VIAL IVP STA (23:06)
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
[2022-07-09 23:24] LABS: Anisocytosis Slight; Basophils # (A) 0.1 k/uL (0-0.2); Basophils % (A) 0 %; Eosinophils # (A) 0.2 k/uL (0-0.7); Eosinophils % (A) 1 %; HCT 38.5 % (39.0-53.0); HGB 12.2 gm/dL (13.0-17.5); Lymphocytes # (A) 2.9 k/uL (1.0-4.8); Lymphocytes % (A) 19 %; MCH 23.3 pg (25.0-35.0); MCHC 31.6 g/dL (31.0-37.0); MCV 73.6 fL (80.0-100.0); Mean Platelet Volume 7.5; Microcytosis Slight; Monocytes # (A) 0.8 k/uL (0-1.0); Monocytes % (A) 5 %; Neutrophils # (A) 11.2 k/uL (1.3-7.7); Neutrophils % (A) 73 %; Platelet Count 312 k/uL (150-450); RBC 5.24 m/uL (4.30-5.90); RDW 16.1 % (11.5-15.5); WBC 15.4 k/uL (3.8-10.6)
[2022-07-09 23:43] LABS: ALT 29 U/L (4-49); AST 34 U/L (17-59); African American GFR (CKD) >90 (>60 ml/min/1.73 sqM); Albumin 4.5 g/dL (3.5-5.0); Alkaline Phosphatase 69 U/L (38-126); Anion Gap 10 mmol/L; Blood Urea Nitrogen 23 mg/dL (9-20); Calcium 9.6 mg/dL (8.4-10.2); Carbon Dioxide 28 mmol/L (22-30); Chloride 104 mmol/L (98-107); Glucose 118 mg/dL (74-99); Lipase 96 U/L (23-300); Non-African American GFR(CKD) >90 (>60 ml/min/1.73 sqM); Potassium 4.2 mmol/L (3.5-5.1); Sodium 142 mmol/L (137-145); Total Bilirubin 0.4 mg/dL (0.2-1.3); Total Protein 7.4 g/dL (6.3-8.2)
[2022-07-09 23:45] LABS: Prothrombin Time 10.3 sec (9.0-12.0)
[2022-07-09 23:56] LABS: Partial Thromboplastin Time 19.8 sec (22.0-30.0)
--- NOTE | 2022-07-10 00:37 | CT ---
EXAMINATION TYPE: CT abdomen pelvis w con DATE OF EXAM: 07/10/2022 COMPARISON: None HISTORY: Coffee gound emesis x [address] DLP: 2174.1 mGycm Automated exposure control for dose reduction was used. CONTRAST: Performed with IV Contrast, patient injected with 100ml mL of Isovue 300. Images obtained from the diaphragm to the floor the pelvis with the IV contrast. There is mild subsegmental atelectasis at the lung bases. Heart size is fairly normal. No pericardial effusion. Liver and spleen are intact. Stomach is large. There is hiatal hernia. Gallbladder appears normal. The bile ducts are not dilated. There is no pancreatic mass. There is no adrenal mass. Kidneys have normal size and contour. No hydronephrosis. Ureters are not di lated. No retroperitoneal adenopathy. There is normal contrast opacification of the kidneys. Delayed images show normal renal excretion. The bladder distends smoothly. No inguinal hernia. No free fluid in the pelvis. No pelvic mass. Appendix is posterior and medial and appears normal. There is no mesenteric edema. No ascites or free air. No sign of a bowel obstruction. The lumbar vert ebra appear intact and no compression fracture. Vertebrae have normal alignment. Bony pelvis is intac t. The hip joints are intact. IMPRESSION: There is hiatal hernia and large stomach that could relate to some gastroparesis. Normal appendix. Mi ld subsegmental atelectasis at the lung bases.
[2022-07-10] MEDS ORDERED: NALOXONE 0.4 MG/ML 1 ML VIAL IV PRN (00:46)
[2022-07-10] MEDS ORDERED: ONDANSETRON 4 MG/2 ML VIAL IVP PRN (00:46)
[2022-07-10] MEDS: SODIUM CHLORIDE 0.9% 1,000 ML IV SCH ×3 (00:54→20:33)
[2022-07-10 07:25] LABS: Basophils % (A) 0 %; Eosinophils # (A) 0.2 k/uL (0-0.7); Eosinophils % (A) 3 %; HCT 33.8 % (39.0-53.0); HGB 10.6 gm/dL (13.0-17.5); Hypochromasia Slight; Lymphocytes # (A) 2.2 k/uL (1.0-4.8); Lymphocytes % (A) 31 %; MCH 23.6 pg (25.0-35.0); MCHC 31.4 g/dL (31.0-37.0); MCV 75.1 fL (80.0-100.0); Mean Platelet Volume 7.4; Microcytosis Slight; Monocytes # (A) 0.4 k/uL (0-1.0); Monocytes % (A) 6 %; Neutrophils # (A) 4.1 k/uL (1.3-7.7); Neutrophils % (A) 58 %; Platelet Count 257 k/uL (150-450); RDW 15.9 % (11.5-15.5); WBC 7.1 k/uL (3.8-10.6)
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
--- NOTE | 2022-07-10 11:58 | P.CONS ---
History of Present Illness - Reason for Consult Consult date: 07/10/22 Coffee-ground emesis, abdominal pain Requesting physician: Walt E Sheet - Chief Complaint Coffee-ground emesis - History of Present Illness This is a pleasant 37-year-old male with a past medical history including traumatic brain injury, paraplegia, seizure disorder and history of small bowel obstruction who was brought in to the emergency department for complaints of multiple episodes of coffee-ground emesis that started Sunday evening. Speaking with the caregiver who is at the bedside as well as patient's sister on the phone there was reported 78 episodes of coffee-ground emesis. They stated that they did not notice any black stool or blood in his stool. Unsure if patient was having abdominal pain because he does not usually report pain unless it is severe. Patient currently denies any abdominal pain at this time, he has had no fevers or chills. He does have a history of a hiatal hernia. Patient was seen by gastroenterology about 2 years ago with complaints of some emesis and difficulty swallowing. At that time he had a barium swallow that did not show any aspiration, mild presbyesophagus and a small hiatal hernia. The upper GI series showed a small hiatal hernia and moderate GERD, no obstruction. Patient's sister does not recall that he has had an EGD in the past. He has not had any vomiting today. On admission he was noted to have a hemoglobin of 12.2 with a drop today of 10.6. Also noted to have an elevated BUN at 23. They deny that he is on any anticoagulation, no NSAIDs, but he does take omeprazole twice a day. CT of the abdomen and pelvis showed no acute abdominal findings. Sister reports that she was recently diagnosed with ulcerative colitis and underwent surgery. Review of Systems REVIEW OF SYSTEMS: CARDIOPULMONARY: No chest pain or shortness of breath. Gastrointestinal: Burning history of GERD, small hiatal hernia but reports no abdominal pain. Multiple episodes of coffee-ground emesis since Sunday. No rectal bleeding, or melena. GENITOURINARY: No dysuria or hematuria. MUSCULOSKELETAL: Paraplegic. SKIN: No rashes. No jaundice. ENDOCRINE: No chills, fevers. No excessive weight gain or loss. No polydipsia or polyuria. PSYCHIATRIC: Unremarkable. NEUROLOGY: No change in mental status. Denies dizziness, headache. Traumatic brain injury. ENT: Vision unremarkable. CONSTITUTIONAL: No recent weight loss. No fever, chills, night sweats. Past Medical History Past Medical History: Seizure Disorder Additional Past Medical History / Comment(s): closed head injury 1994, paraplegia, history of small bowel obstructions History of Any Multi-Drug Resistant Organisms: None Reported Additional Past Surgical History / Comment(s): Pin in right leg Past Psychological History: Depression Smoking Status: Never smoker Past Alcohol Use History: None Reported Past Drug Use History: None Reported Medications and Allergies Home Medications Medication Instructions Recorded Confirmed Type Baclofen [Lioresal] 5 mg PO BID@0730,1400 10/17/18 07/10/22 History lamoTRIgine [LaMICtal] 100 mg PO BID 10/17/18 07/10/22 History lamoTRIgine [LaMICtal] 25 mg PO BID #60 tab 08/21/20 07/10/22 Rx Baclofen [Lioresal] 10 mg PO HS 07/10/22 07/10/22 History Escitalopram [Lexapro] 10 mg PO HS 07/10/22 07/10/22 History Allergies Allergy/AdvReac Type Severity Reaction Status Date / Time amoxicillin [From Augmentin] AdvReac Nausea & Verified 07/10/22 07:48 Vomiting clavulanic acid AdvReac Nausea & Verified 07/10/22 07:48 [From Augmentin] Vomiting sulfamethoxazole AdvReac Nausea & Verified 07/10/22 07:48 [From Bactrim] Vomiting trimethoprim [From Bactrim] AdvReac Nausea & Verified 07/10/22 07:48 Vomiting Physical Exam Vitals: Vital Signs Temp Pulse Pulse Resp BP BP Pulse Ox 07/10/22 07:24 98.3 F 107 H 16 118/79 95 07/10/22 02:34 144/96 07/10/22 02:00 97.5 F L 133 H 20 91 L 07/10/22 01:02 149/109 07/10/22 00:00 110 H 20 148/128 95 07/09/22 22:55 98.6 F 118 H 16 175/122 96 Intake and Output 07/09/22 07/10/22 07/10/22 22:59 06:59 14:59 Intake Total 360 Output Total 300 Balance 60 Intake: Intake, IV Titration 360 Amount Sodium Chloride 0.9% 1, 360 000 ml @ 120 mls/hr IV . Q8H20M [facility] Rx#:[id number] Output: Urine 300 Other: Voiding Method Urinal Urinal # Voids 1 Weight 83.915 kg 66 kg General appearance: The patient is alert, oriented, appears in no acute distress. HET: Head is normocephalic and atraumatic. Conjunctiva pink. Sclera anicteric. Neck: Supple without lymphadenopathy. Trachea midline. Heart: S1 S2. Regular rate and rhythm. Lungs: Clear to auscultation. Abdomen: Soft, upper abdominal wall scar from previous PEG tube well-healed, nontender, nondistended with bowel sounds. No guarding or rigidity. Skin: No rashes. No jaundice. Extremities: Normal skin color and turgor. No pedal edema. Neurological: Paraplegic. Results CBC & Chem 7: 07/10/22 06:42 07/09/22 23:10 Labs: Abnormal Lab Results - Last 24 Hours (Table) 07/09/22 07/09/22 07/09/22 Range/Units 23:10 23:10 23:10 WBC 15.4 H (3.8-10.6) k/uL Hgb 12.2 L (13.0-17.5) gm/dL Hct 38.5 L (39.0-53.0) % MCV 73.6 L (80.0-100.0) fL MCH 23.3 L (25.0-35.0) pg RDW 16.1 H (11.5-15.5) % Neutrophils # 11.2 H (1.3-7.7) k/uL APTT 19.8 L (22.0-30.0) sec BUN 23 H (9-20) mg/dL Glucose 118 H (74-99) mg/dL 07/10/22 Range/Units 06:42 WBC (3.8-10.6) k/uL Hgb 10.6 L (13.0-17.5) gm/dL Hct 33.8 L (39.0-53.0) % MCV 75.1 L (80.0-100.0) fL MCH 23.6 L (25.0-35.0) pg RDW 15.9 H (11.5-15.5) % Neutrophils # (1.3-7.7) k/uL APTT (22.0-30.0) sec BUN (9-20) mg/dL Glucose (74-99) mg/dL CT scan - abdomen: report reviewed (Hiatal hernia and large stomach that could relate to some gastroparesis. Normal appendix. Mild subsegmental atelectasis at the lung base.) Assessment and Plan (1) Coffee ground emesis Narrative/Plan: 37-year-old male who presented to the hospital with complaints of coffee-ground emesis for the past 2 days. No reported anticoagulation or NSAID use. Does have a history of GERD on omeprazole twice a day. Didn't come in with initial hemoglobin of 12.2 with a drop to 10.2 with an elevated BUN at 23. No previous history of GI bleed. No reported black stool or blood in his stool. Unclear etiology at this time however possible etiologies include peptic ulcer disease, gastritis, esophagitis, AVM or other possible etiologies. Would recommend proceeding with an EGD. Patient, sister and mother agreeable to proceed. Current Visit: No Status: Acute Code(s): K92.0 - HEMATEMESIS SNOMED Code(s): 28704137 Plan: 1. Clear liquid diet, nothing by mouth after midnight 2. Avoid NSAIDs 3. Will proceed with EGD tomorrow 4. Increase Protonix to 40 mg twice a day 5. Repeat CBC daily, transfuse for hemoglobin less than 7 Thank you consultation, we will continue to follow. Dr. Mai Encarnacion I agree with the dictator's note, documented as a scribe by Maria Elena Baldwin.
[2022-07-10] MEDS: PANTOPRAZOLE 40 MG/10 ML VIAL IVP SCH ×2 (12:18→20:33)
[2022-07-10] MEDS: BACLOFEN 10 MG TAB PO SCH (13:48)
[2022-07-10] MEDS: lamoTRIgine 100 MG TAB PO SCH (20:32)
[2022-07-10] MEDS: lamoTRIgine 25 MG TAB PO SCH (20:32)
[2022-07-10] MEDS ORDERED: ESCITALOPRAM 10 MG TAB PO SCH (21:00)
[2022-07-10] MEDS ORDERED: BACLOFEN 10 MG TAB PO SCH (21:00)
[2022-07-11] MEDS: SODIUM CHLORIDE 0.9% 1,000 ML IV SCH (04:16)
[2022-07-11] MEDS ORDERED: PANTOPRAZOLE 40 MG/10 ML VIAL IVP SCH (09:00)
[2022-07-11] MEDS ORDERED: IV FLUID CONTINUATION 1,000 ML IV ONE (09:00)
[2022-07-11] MEDS ORDERED: PROPOFOL 10 MG/ML 20 ML VIAL IV ONE (09:05)
--- NOTE | 2022-07-11 09:15 | P.PCN ---
Date of Procedure: 07/11/22 Procedure(s) Performed: BRIEF HISTORY: Patient is a 37-year-old, pleasant, white male with history of traumatic brain injury, admitted to the hospital multiple episodes of coffee- ground emesis. PROCEDURE PERFORMED: Esophagogastroduodenoscopy. PREOPERATIVE DIAGNOSIS: Upper GI bleed. IV sedation per anesthesia. PROCEDURE: After informed consent was obtained, the patient was brought into the endoscopy unit. IV sedation was administered by Anesthesia under continuous monitoring. Initially the Olympus GIF-140 video endoscope was inserted into the mouth. Esophagus intubated without any difficulty. It was gradually advanced into the stomach and duodenum and carefully examined. The bulb and the second part of the duodenum appeared normal. No active bleeding identified. The scope at this time was withdrawn to the stomach, adequately insufflated with air, and upon careful examination, mucosa of the antrum, body, cardia and the fundus appeared normal. There was some scarring in the mid body of the stomach from the previous PEG tube. The scope was then withdrawn into the esophagus. The GE junction was located at 39 cm from the incisors. There were superficial erosions and one superficial ulceration in the distal esophagus consistent with LA grade B reflux esophagitis. No active bleeding noted. The esophagus appeared normal and the patient tolerated the procedure well. IMPRESSION: 1. Linear Erosions and one superficial ulceration at the GE junction consistent with LA grade B reflux esophagitis. No active bleeding. 2. No evidence of peptic ulcer disease. RECOMMENDATIONS: The findings of this examination were discussed with the patient as well as his family. He was advised to continue with Protonix 40 mg daily. Advance diet as tolerated.
[2022-07-11 09:56] LABS: Basophils # (A) 0.02 X 10*3/uL (0.00-0.10); Basophils % (A) 0.3 %; Eosinophils # (A) 0.31 X 10*3/uL (0.04-0.35); Eosinophils % (A) 5.1 %; HCT 34.1 % (39.6-50.0); HGB 9.8 g/dL (13.0-17.0); Immature Grans, Automated 0.2 %; Lymphocytes # (A) 2.03 X 10*3/uL (0.90-5.00); Lymphocytes % (A) 33.3 %; MCH 22.7 pg (27.0-32.0); MCHC 28.7 g/dL (32.0-37.0); MCV 78.9 fL (80.0-97.0); Mean Platelet Volume 9.8 fL (9.5-12.2); Monocytes # (A) 0.43 X 10*3/uL (0.20-1.00); NRBC Per 100 WBC 0 /100 WBCS (0.0-0.0); Neutrophils % (A) 54.1 %; Platelet Count 251 X 10*3/uL (140-440); RBC 4.32 X 10*6/uL (4.40-5.60); RDW 16.1 % (11.5-14.5)
[2022-07-11] MEDS: PANTOPRAZOLE 40 MG/10 ML VIAL IVP SCH (10:42)
[2022-07-11] MEDS: lamoTRIgine 100 MG TAB PO SCH (10:42)
[2022-07-11] MEDS: lamoTRIgine 25 MG TAB PO SCH (10:42)
[2022-07-11] MEDS: BACLOFEN 10 MG TAB PO SCH (10:43)
[2022-07-11 11:24] LABS: Albumin 3.8 g/dL (3.8-4.9); Albumin/Globulin Ratio 1.73 (1.60-3.17); Anion Gap 8.9 mmol/L (10.00-18.00); BUN/Creat Ratio 10.33 Ratio (12.00-20.00); Blood Urea Nitrogen 6.2 mg/dL (9.0-27.0); Calcium 8.7 mg/dL (8.7-10.3); Carbon Dioxide 28.1 mmol/L (20.0-27.5); Globulin 2.2 g/dL (1.6-3.3); Non-African American GFR(CKD) 130.3 (60.0-200.0); Potassium 5.4 mmol/L (3.5-5.5); Total Bilirubin 0.2 mg/dL (0.30-1.20)
[2022-07-11 13:16] VITALS: BP 123/88; PULSE 102; RESP 18; TEMP 98.8
--- NOTE | 2022-07-11 22:23 | P.DS ---
Providers Date of admission: 07/10/22 03:42 Attending physician: Yossi Gilliland MD Consults: 07/10/22 09:00 Consult Physician Routine Consulting Provider: Pricila Encarnacion Consult Reason/Comments: coffee ground emesis,abd. pain Do you want consulting provider notified?: Yes Primary care physician: Marck Ben [facility] Hospital Course: Diagnoses: Coffee-ground vomiting, secondary to reflux esophagitis. Stabilized and cleared for discharge Large stomach and hiatal hernia History of seizure History of closed head injury and paraplegia. Hospital course: This 57 years old male with past medical history of seizure, closed head injury and paraplegia. Patient is follow-up with Dr. Contreras Patient is nonverbal at baseline presents with coffee ground vomiting 1 day. Patient evaluated by GI service. He underwent EGD: Linear Erosions and one superficial ulceration at the GE junction consistent with LA grade B reflux esophagitis. No active bleeding. Patient vomiting., No more bleeding, vitals and blood pressure stable, hemoglobin stable. Patient was cleared for discharge by GI service on the Protonix. Patient denies any other symptoms and back to baseline. Caregiver at bedside wanted to take him home today. Patient denies any other new symptoms. Problems and management plan were discussed with the patient and he verbalized understanding and acceptance Patient was found stable and can be discharged home in guarded prognosis however he needs follow-up as an outpatient. Patient was instructed to follow up with PCP Dr. Contreras within one week and patient agrees Patient was instructed to follow up with Dr. Encarnacion from GI in 1-2 weeks and patient and caregiver are agreeable Physical exam Gen: patient is a AAOx3, no distress CVS: S1-S2, RRR, no murmur Lungs: B/L CTA, no wheezing Abdomen: soft, no distention, no tenderness, positive bowel sounds Extremity: no leg edema or induration NEUROLOGICAL: Cranial nerves are grossly intact. Sensation is intact. Paraplegic, chronic Time spent more than 35 minutes Patient Condition at Discharge: Stable Plan - Discharge Summary Discharge Rx Participant: Yes New Discharge Prescriptions: New Pantoprazole [Protonix] 40 mg PO BID 30 Days #60 tab Continue lamoTRIgine [LaMICtal] 100 mg PO BID Baclofen [Lioresal] 5 mg PO BID@0730,1400 lamoTRIgine [LaMICtal] 25 mg PO BID #60 tab Escitalopram [Lexapro] 10 mg PO HS Baclofen [Lioresal] 10 mg PO HS Discharge Medication List Baclofen [Lioresal] 5 mg PO BID@0730,1400 10/17/18 [History] lamoTRIgine [LaMICtal] 100 mg PO BID 10/17/18 [History] lamoTRIgine [LaMICtal] 25 mg PO BID #60 tab 08/21/20 [Rx] Baclofen [Lioresal] 10 mg PO HS 07/10/22 [History] Escitalopram [Lexapro] 10 mg PO HS 07/10/22 [History] Pantoprazole [Protonix] 40 mg PO BID 30 Days #60 tab 07/11/22 [Rx] Follow up Appointment(s)/Referral(s): Pricila Encarnacion MD [STAFF PHYSICIAN] - 08/09/22 11:30 am () Marck Contreras DO [Primary Care Provider] - 1-2 days (CALL AND SCHEDULE APPOINTMENT) Patient Instructions/Handouts: Pantoprazole (By mouth), Diet for Stomach Ulcers and Gastritis (GEN), Esophagitis (DC) Activity/Diet/Wound Care/Special Instructions: Marv-caregiver P: [phone] Lola Fox - sister P: [phone] Heart healthy diet Activity is as tolerated Discharge Disposition: HOME SELF-CARE
== END 2022-07-11 14:02 | disposition home or self-care (01) | DRG 369 ==
LOC: EC 22:47 → 6NMEDSUR 07-10 00:48 → 5NMEDONC 07-10 01:10 → OBSVTOIN 07-10 03:42
PROVIDERS: ADMIT Internal Medicine; ATTEND Internal Medicine
PROC: 0DJ08ZZ Inspection of Upper Intestinal Tract, Via Natural or Artificial Opening Endoscopic (ICD-10-PCS; principal; 2022-07-11 12:20)
DX: K21.01 Gastro-esophageal reflux disease with esophagitis, with bleeding (principal); G82.20 Paraplegia, unspecified; K22.10 Ulcer of esophagus without bleeding; K51.90 Ulcerative colitis, unspecified, without complications; K44.9 Diaphragmatic hernia without obstruction or gangrene; F32.A Depression, unspecified; G40.909 Epilepsy, unspecified, not intractable, without status epilepticus; Z87.820 Personal history of traumatic brain injury; K25.9 Gastric ulcer, unspecified as acute or chronic, without hemorrhage or perforation; Z79.899 Other long term (current) drug therapy; Z74.01 Bed confinement status; Z28.311 Partially vaccinated for COVID-19; R13.10 Dysphagia, unspecified; Z88.0 Allergy status to penicillin; Z88.2 Allergy status to sulfonamides; Z88.8 Allergy status to other drugs, medicaments and biological substances
CPT/HCPCS: 36415; 43235; 74177; 80053; 83690; 85025; 85610; 85730; 86850; 86870; 86880; 86900; 86901; 86902; 96361; 96374; 96375; 99285

== ENCOUNTER 2023-07-17 22:19 | Emergency (ER) | payer MEDICARE ==
[2023-07-17 23:34] LABS: Anisocytosis Slight; Basophils % (A) 0 %; Eosinophils # (A) 0.2 k/uL (0-0.7); Eosinophils % (A) 3 %; HCT 46.9 % (39.0-53.0); HGB 15.5 gm/dL (13.0-17.5); Lymphocytes # (A) 2.2 k/uL (1.0-4.8); Lymphocytes % (A) 33 %; MCV 78.8 fL (80.0-100.0); Mean Platelet Volume 7.8; Microcytosis Moderate; Monocytes # (A) 0.3 k/uL (0-1.0); Monocytes % (A) 5 %; Neutrophils # (A) 3.8 k/uL (1.3-7.7); Neutrophils % (A) 57 %; Platelet Count 221 k/uL (150-450); RBC 5.95 m/uL (4.30-5.90); RDW 19.8 % (11.5-15.5); WBC 6.7 k/uL (3.8-10.6)
[2023-07-17 23:40] VITALS: RESP 18
--- NOTE | 2023-07-17 23:42 | ED ---
General Adult HPI - General Chief complaint: Recheck/Abnormal Lab/Rx Stated complaint: Spitting up blood Time Seen by Provider: 07/17/23 23:38 Source: family Mode of arrival: wheelchair Limitations: language barrier, altered mental status, physical limitation - History of Present Illness Initial comments: 38-year-old male with history of cognitive and physical limitations due to previous head injury brought in by his family tonight with chief complaint of spitting up blood. Patient started coughing up thick mucus with red-brown discoloration at 8 PM. Family states that when they arrived to the ER symptoms had stopped. Patient has history of bleeding esophageal ulcers back in December 2022 causing severe anemia. Family states that they just wanted to bring him in to get his hemoglobin checked. He has had no other symptoms according to family. - Related Data Home Medications Medication Instructions Recorded Confirmed Baclofen [Lioresal] 5 mg PO BID@0730,1400 10/17/18 07/10/22 lamoTRIgine [LaMICtal] 100 mg PO BID 10/17/18 07/10/22 Baclofen [Lioresal] 10 mg PO HS 07/10/22 07/10/22 Escitalopram [Lexapro] 10 mg PO HS 07/10/22 07/10/22 Previous Rx's Medication Instructions Recorded lamoTRIgine [LaMICtal] 25 mg PO BID #60 tab 08/21/20 Pantoprazole [Protonix] 40 mg PO BID 30 Days #60 tab 07/11/22 Allergies Allergy/AdvReac Type Severity Reaction Status Date / Time amoxicillin [From Augmentin] AdvReac Nausea & Verified 07/17/23 23:17 Vomiting clavulanic acid AdvReac Nausea & Verified 07/17/23 23:17 [From Augmentin] Vomiting sulfamethoxazole AdvReac Nausea & Verified 07/17/23 23:17 [From Bactrim] Vomiting trimethoprim [From Bactrim] AdvReac Nausea & Verified 07/17/23 23:17 Vomiting Review of Systems ROS Statement: Those systems with pertinent positive or pertinent negative responses have been documented in the HPI. ROS Other: All systems not noted in ROS Statement are negative. Past Medical History Past Medical History: GI Bleed, Seizure Disorder Additional Past Medical History / Comment(s): closed head injury 1994, paraplegia, history of small bowel obstructions History of Any Multi-Drug Resistant Organisms: None Reported Additional Past Surgical History / Comment(s): Pin in right leg Past Psychological History: Depression Smoking Status: Never smoker Past Alcohol Use History: None Reported Past Drug Use History: None Reported General Exam - General Exam Comments Initial Comments: Visual Physical Exam Vital signs reviewed General: no acute distress. ENT: Airway patent Chest: Nonlabored breathing Skin: No visual rash, normal skin tone Neuro: Alert Musculoskeletal: No gross abnormalities Limitations: language barrier, altered mental status, physical limitation General appearance: alert, in no apparent distress Head exam: Present: atraumatic, normocephalic Eye exam: Present: normal appearance Neck exam: Present: normal inspection Respiratory exam: Present: normal lung sounds bilaterally. Absent: respiratory distress, wheezes, rales, rhonchi, stridor Cardiovascular Exam: Present: regular rate, normal rhythm, normal heart sounds. Absent: systolic murmur, diastolic murmur, rubs, gallop, clicks Neurological exam: Present: alert (Orientation at baseline) Skin exam: Present: warm, dry Course Vital Signs 07/17/23 07/18/23 23:17 00:51 Temperature 98.1 F 98.2 F Pulse Rate 69 65 Respiratory 18 18 Rate Blood Pressure 152/99 146/90 O2 Sat by Pulse 98 99 Oximetry Medical Decision Making - Medical Decision Making Was pt. sent in by a medical professional or institution ([facility], [employer], urgent care, hospital, or group home...) When possible be specific @ -No Did you speak to anyone other than the patient for history (EMS, parent, family, police, friend...)? What history was obtained from this source @ -History obtained from caregivers Did you review nursing and triage notes (agree or disagree)? Why? @ -I reviewed and agree with nursing and triage notes Were old charts reviewed (outside hosp., previous admission, EMS record, old EKG, old radiological studies, urgent care reports/EKG's, group home records)? Report findings @ -No old charts were reviewed Differential Diagnosis (chest pain, altered mental status, abdominal pain women, abdominal pain men, vaginal bleeding, weakness, fever, dyspnea, syncope, headache, dizziness, GI bleed, back pain, seizure, CVA, palpatations, mental health, musculoskeletal)? @ -Differential includes GI bleed, bronchitis, pulmonary embolism, esophageal varices, this is not an all-inclusive list EKG interpreted by me (3pts min.). @ -As above X-rays interpreted by me (1pt min.). @ -None done CT interpreted by me (1pt min.). @ -None done U/S interpreted by me (1pt. min.). @ -None done What testing was considered but not performed or refused? (CT, X-rays, U/S, labs)? Why? @ -None What meds were considered but not given or refused? Why? @ -None Did you discuss the management of the patient with other professionals (professionals i.e. DrHarriet, PA, [employer], lab, RT, psych nurse, social and human services assistant, cop winder, teacher, flight communications officer, mental health case manager)? Give summary @ -No Was smoking cessation discussed for >3mins.? @ -No Was critical care preformed (if so, how long)? @ -No Were there social determinants of health that impacted care today? How? (Homelessness, low income, unemployed, alcoholism, drug addiction, tra nsportation, low edu. Level, literacy, decrease access to med. care, senior living, rehab)? @ -No Was there de-escalation of care discussed even if they declined (Discuss DNR or withdrawal of care, Hospice)? DNR status @ -No What co-morbidities impacted this encounter? (DM, HTN, Smoking, COPD, CAD, Cancer, CVA, ARF, Chemo, Hep., AIDS, mental health diagnosis, sleep apnea, morbid obesity)? @ -History of GI bleed Was patient admitted / discharged? Hospital course, mention meds given and route, prescriptions, significant lab abnormalities, going to OR and other pertinent info. @ -38-year-old male presenting with chief complaint of coughing up brown blood. This started this evening. His caregivers were concerned because he has history of bleeding ulcers which cause severe anemia requiring blood t ransfusion. They state that they just wanted to bring him in to check his hemoglobin, if his hemoglobin is normal they would like to take him home. History and physical exam are conducted. Hemoglobin is 15.5, they are requesting discharge home. Caregivers are educated on today's findings. They are educated on alarm symptoms that should prompt reevaluation. They are instructed to follow-up closely with his PCP and GI specialist Dr. Encarnacion. Follow-up with PCP. Report back to ER with any new or worsening symptoms. Discussed return parameters and answered all questions. Patient's caregivers conveyed verbal understanding and agreed to the plan. I discussed this case in detail with my attending Dr. Peña Undiagnosed new problem with uncertain prognosis? @ -No Drug Therapy requiring intensive monitoring for toxicity (Heparin, Nitro, Insulin, Cardizem)? @ -No Were any procedures done? @ -No Diagnosis/symptom? @ -1 episode of possible hemoptysis Acute, or Chronic, or Acute on Chronic? @ -Acute Uncomplicated (without systemic symptoms) or Complicated (systemic symptoms)? @ -Uncomplicated Side effects of treatment? @ -No Exacerbation, Progression, or Severe Exacerbation? @ -No Poses a threat to life or bodily function? How? (Chest pain, [place], [place], pneumonia, PE, COPD, DKA, ARF, appy, cholecystitis, CVA, Diverticulitis, Homicidal, Suicidal, threat to staff... and all critical care pts) @ -Likelihood is low at this time - Lab Data Result diagrams: 07/17/23 23:29 07/17/23 23:29 Lab Results 07/17/23 07/17/23 Range/Units 23:29 23:29 WBC 6.7 (3.8-10.6) k/uL RBC 5.95 H (4.30-5.90) m/uL Hgb 15.5 (13.0-17.5) gm/dL Hct 46.9 (39.0-53.0) % MCV 78.8 L (80.0-100.0) fL MCH 26.0 (25.0-35.0) pg MCHC 33.0 (31.0-37.0) g/dL RDW 19.8 H (11.5-15.5) % Plt Count 221 (150-450) k/uL MPV 7.8 Neutrophils % 57 % Lymphocytes % 33 % Monocytes % 5 % Eosinophils % 3 % Basophils % 0 % Neutrophils # 3.8 (1.3-7.7) k/uL Lymphocytes # 2.2 (1.0-4.8) k/uL Monocytes # 0.3 (0-1.0) k/uL Eosinophils # 0.2 (0-0.7) k/uL Basophils # 0.0 (0-0.2) k/uL Anisocytosis Slight Microcytosis Moderate Sodium 139 (137-145) mmol/L Potassium 4.0 (3.5-5.1) mmol/L Chloride 105 (98-107) mmol/L Carbon Dioxide 29 (22-30) mmol/L Anion Gap 5 mmol/L BUN 15 (9-20) mg/dL Creatinine 0.61 L (0.66-1.25) mg/dL Est GFR (CKD-EPI)AfAm >90 (>60 ml/min/1.73 sqM) Est GFR (CKD-EPI)NonAf >90 (>60 ml/min/1.73 sqM) Glucose 99 (74-99) mg/dL Calcium 9.3 (8.4-10.2) mg/dL Total Bilirubin 0.3 (0.2-1.3) mg/dL AST 28 (17-59) U/L ALT 24 (4-49) U/L Alkaline Phosphatase 69 (38-126) U/L Total Protein 7.5 (6.3-8.2) g/dL Albumin 4.4 (3.5-5.0) g/dL Disposition Clinical Impression: Cough with hemoptysis Disposition: HOME SELF-CARE Condition: Fair Instructions (If sedation given, give patient instructions): Gastrointestinal Bleeding (ED) Additional Instructions: Follow-up with PCP and GI. Report back to ER with any new or worsening symptoms. Is patient prescribed a controlled substance at d/c from ED?: No Referrals: Marck Contreras DO [Primary Care Provider] - 1-2 days Pricila Encarnacion MD [STAFF PHYSICIAN] - 1-2 days Time of Disposition: 00:51
[2023-07-17 23:50] LABS: ALT 24 U/L (4-49); AST 28 U/L (17-59); African American GFR (CKD) >90 (>60 ml/min/1.73 sqM); Albumin 4.4 g/dL (3.5-5.0); Alkaline Phosphatase 69 U/L (38-126); Anion Gap 5 mmol/L; Blood Urea Nitrogen 15 mg/dL (9-20); Calcium 9.3 mg/dL (8.4-10.2); Carbon Dioxide 29 mmol/L (22-30); Chloride 105 mmol/L (98-107); Glucose 99 mg/dL (74-99); Non-African American GFR(CKD) >90 (>60 ml/min/1.73 sqM); Sodium 139 mmol/L (137-145); Total Bilirubin 0.3 mg/dL (0.2-1.3); Total Protein 7.5 g/dL (6.3-8.2)
[2023-07-18 01:19] VITALS: BP 146/90; PULSE 65; TEMP 98.2
== END 2023-07-18 00:57 | disposition home or self-care (01) ==
LOC: EC 22:19
DX: R04.2 Hemoptysis (principal); R41.82 Altered mental status, unspecified; G40.909 Epilepsy, unspecified, not intractable, without status epilepticus; F32.A Depression, unspecified; Z79.899 Other long term (current) drug therapy; Z88.0 Allergy status to penicillin; Z88.1 Allergy status to other antibiotic agents; Z88.2 Allergy status to sulfonamides
CPT/HCPCS: 36415; 80053; 85025; 99283

== ENCOUNTER → 2024-03-05 | Outpatient (CLI) | payer MEDICARE ==
[2024-03-05 14:50] VITALS: BP 125/88; PULSE 89; RESP 18; TEMP 98.5
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
== END ==
LOC: 3 N SLEEP 13:38
PROVIDERS: ATTEND Internal Medicine
CPT/HCPCS: 99211

== ENCOUNTER 2024-04-10 19:42 | Outpatient (CLI) | payer MEDICARE ==
--- NOTE | 2024-04-17 18:02 | P.PCN ---
Description of Procedure: POLYSOMNOGRAPHY REPORT PROCEDURE(S)/DATE(S): Polysomnography 04/10/2024 CLINICAL: Patient has been seen in the sleep center for evaluation of obstructive sleep apnea-hypopnea syndrome. Please see my consultation. Sleep study has been done for evaluation of patient breathing during the sleep. PROCEDURE: The standard montage for clinical polysomnography included the electroencephalogram, the electrooculogram, the mentalis surface electromyography and Lead II cardiography. The respiratory battery consisted of measurements of nasal/buccal air flow, pressure transducer measurements from nose, thoracic and/or abdominal effort and intercostal surface electromyography. Video monitoring has been done to check for any parasomnia events. Nocturnal oxyhemoglobin saturations were obtained by finger oximetry. Step-umana titration with positive airway pressure was utilized to control the respiratory events, if necessary. RESULTS: During the diagnostic sleep study sleep efficiency was significantly decreased to 67.3%. Latency to sleep onset was prolonged to 37.0 min. Sleep ar chitecture showed stage NI was short 1.9%, Delta sleep was absent 0%, REM sleep was normal 20.8%. Respiratory channel showed 17 obstructive apneas, 1 mixed apneas, 0 central apneas, 28 hypopneas with lowest oxygen level 78%. Total apnea hypopnea index was 8.8. Heart rate was in the range between 74 and 88, average 81. EMG showed 0 periodic limb movements per hour with 0 micro-arousals per hour. IMPRESSIONS: 1. Obstructive sleep apnea hypopnea syndrome in mild range. 2. No significant periodic limb movements have been documented. 3. Hypertension. Please see other impressions from consultation PLAN: 1. The patient will have AutoPAP treatment for correction of respiratory abnormalities during the sleep. 2. Watching weight. 3. Sleep hygiene with regular time in bed for at least 7-1/2 hours. 4. No driving if feeling sleepiness. Thank you very much for allowing me to participate in the management of your patient. Sincerely, Cole Ferguson MD, PhD, FAASM. Diplomat of [place] [employer], Sleep Medicine Board by [place] [employer] Merchandise Appraiser of [facility] [place] cc: Marck Contreras DO
== END 2024-04-11 06:00 | disposition home or self-care (01) ==
LOC: 3 N SLEEP 19:42
PROVIDERS: ATTEND Internal Medicine
DX: G47.33 Obstructive sleep apnea (adult) (pediatric) (principal); I10 Essential (primary) hypertension; Z88.0 Allergy status to penicillin; Z88.2 Allergy status to sulfonamides; Z88.1 Allergy status to other antibiotic agents; Z88.8 Allergy status to other drugs, medicaments and biological substances
CPT/HCPCS: 95810

== ENCOUNTER → 2024-07-03 | Outpatient (CLI) | payer MEDICARE ==
[2024-07-03 14:12] VITALS: BP 121/90; PULSE 82; RESP 20; TEMP 97.8
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
== END ==
LOC: 3 N SLEEP 13:49
PROVIDERS: ATTEND Internal Medicine
DX: G47.33 Obstructive sleep apnea (adult) (pediatric) (principal); E66.01 Morbid (severe) obesity due to excess calories; G40.909 Epilepsy, unspecified, not intractable, without status epilepticus; I10 Essential (primary) hypertension; K21.9 Gastro-esophageal reflux disease without esophagitis; Z86.69 Personal history of other diseases of the nervous system and sense organs; Z87.09 Personal history of other diseases of the respiratory system; Z88.0 Allergy status to penicillin; Z88.1 Allergy status to other antibiotic agents; Z88.2 Allergy status to sulfonamides; Z99.89 Dependence on other enabling machines and devices
CPT/HCPCS: 99212

== ENCOUNTER 2024-10-20 21:45 | Inpatient (IN) | payer MEDICARE ==
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
[2024-10-20] MEDS: SODIUM CHLORIDE 0.9% 1,000 ML IV ONE (22:32)
[2024-10-20] MEDS: ONDANSETRON 4 MG/2 ML VIAL IVP STA (22:33)
[2024-10-20 22:52] LABS: Basophils # (A) 0.04 10*3/uL (0.00-0.10); Basophils % (A) 0.2 %; Eosinophils # (A) 0.02 10*3/uL (0.04-0.35); Eosinophils % (A) 0.1 %; HCT 44.2 % (39.6-50.0); HGB 15.6 g/dL (13.0-17.0); Lymphocytes # (A) 2.25 10*3/uL (0.90-5.00); Lymphocytes % (A) 10.9 %; MCH 31.1 pg (27.0-32.0); MCHC 35.3 g/dL (32.0-37.0); MCV 88.2 fL (80.0-97.0); Mean Platelet Volume 10.2 fL (9.5-12.2); Monocytes # (A) 1.63 10*3/uL (0.20-1.00); Monocytes % (A) 7.9 %; Neutrophils # (A) 16.59 10*3/uL (1.80-7.70); Neutrophils % (A) 80.4 %; Platelet Count 337 10*3/uL (140-440); RBC 5.01 10*6/uL (4.40-5.60); RDW 13.2 % (11.5-14.5); WBC 20.63 10*3/uL (4.50-10.00)
--- NOTE | 2024-10-20 23:04 | XR ---
EXAMINATION TYPE: XR chest 1V portable DATE OF EXAM: 10/20/2024 10:54 PM COMPARISON: 08/18/2020 CLINICAL INDICATION: Male, 39 years old with history of pain, TECHNIQUE: XR chest 1V portable view(s) obtained. FINDINGS: The heart size is normal. The pulmonary vasculature is normal. The lungs are clear. IMPRESSION: 1. No acute pulmonary process. [facility], Workstation: [facility], 10/20/2024 11:02 PM
[2024-10-20 23:05] LABS: Partial Thromboplastin Time 23.1 sec (22.0-30.0); Prothrombin Time 11.3 sec (10.0-12.5)
--- NOTE | 2024-10-20 23:06 | XR ---
EXAMINATION TYPE: XR KUB portable DATE OF EXAM: 10/20/2024 10:54 PM COMPARISON: None. CLINICAL INDICATION: Male, 39 years old with history of pain, TECHNIQUE: XR KUB portable view(s) obtained. FINDINGS: There is a normal bowel gas pattern. Psoas margins are well-visualized No organomegaly is present. IMPRESSION: 1. Unremarkable abdomen [facility], Workstation: [facility], 10/20/2024 11:03 PM
[2024-10-20 23:22] LABS: ALT 27 U/L (4-49); AST 48 U/L (17-59); African American GFR (CKD) >90 (>60 ml/min/1.73 sqM); Albumin 4.1 g/dL (3.5-5.0); Alkaline Phosphatase 50 U/L (38-126); Anion Gap 12 mmol/L; Blood Urea Nitrogen 48 mg/dL (9-20); Calcium 10.6 mg/dL (8.4-10.2); Carbon Dioxide 25 mmol/L (22-30); Chloride 100 mmol/L (98-107); Glucose 130 mg/dL (74-99); Magnesium 1.9 mg/dL (1.6-2.3); Non-African American GFR(CKD) >90 (>60 ml/min/1.73 sqM); Phosphorus 4.3 mg/dL (2.5-4.5); Sodium 137 mmol/L (137-145); Total Bilirubin 0.6 mg/dL (0.2-1.3); Total Protein 6.8 g/dL (6.3-8.2)
[2024-10-21] MEDS ORDERED: NALOXONE 0.4 MG/ML 1 ML VIAL IV PRN (00:09)
[2024-10-21] MEDS ORDERED: MORPHINE SULFATE 4 MG/ML SYRINGE IV PRN (00:09)
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
[2024-10-21 00:55] LABS: Appearance,Urine Clear (Clear); Bilirubin,Urine Negative (Negative); Blood,Urine Negative (Negative); Color,Urine Light Yellow; Glucose,Urine (UA) Negative (Negative); Ketones,Urine Trace (Negative); Leukocyte Esterase,Urine Negative (Negative); Nitrite,Urine Negative (Negative); Protein,Urine Negative (Negative); Urobilinogen,Urine <2.0 mg/dL (<2.0)
[2024-10-21] MEDS: SODIUM CHLORIDE 0.9% 1,000 ML IV SCH (01:52)
[2024-10-21 04:18] LABS: Specific Gravity,Urine >1.050 (1.001-1.035)
[2024-10-21] MEDS ORDERED: ACETAMINOPHEN TAB 325 MG TAB PO PRN (06:22)
[2024-10-21] MEDS: PANTOPRAZOLE 40 MG/10 ML VIAL IV SCH ×2 (08:02→21:33)
[2024-10-21] MEDS: ONDANSETRON 4 MG/2 ML VIAL IVP PRN (08:02)
[2024-10-21 08:11] LABS: African American GFR (CKD) >90 (>60 ml/min/1.73 sqM); Anion Gap 6 mmol/L; Blood Urea Nitrogen 35 mg/dL (9-20); Calcium 8.9 mg/dL (8.4-10.2); Carbon Dioxide 29 mmol/L (22-30); Chloride 104 mmol/L (98-107); Glucose 123 mg/dL (74-99); Non-African American GFR(CKD) >90 (>60 ml/min/1.73 sqM); Potassium 3.9 mmol/L (3.5-5.1); Sodium 139 mmol/L (137-145)
[2024-10-21 08:58] LABS: Basophils # (A) 0.05 10*3/uL (0.00-0.10); Basophils % (A) 0.2 %; Eosinophils # (A) 0.03 10*3/uL (0.04-0.35); Eosinophils % (A) 0.1 %; HCT 36.4 % (39.6-50.0); Lymphocytes # (A) 2.28 10*3/uL (0.90-5.00); Lymphocytes % (A) 10.6 %; MCH 31.4 pg (27.0-32.0); MCHC 34.1 g/dL (32.0-37.0); MCV 92.2 fL (80.0-97.0); Mean Platelet Volume 10.6 fL (9.5-12.2); Monocytes # (A) 1.83 10*3/uL (0.20-1.00); Monocytes % (A) 8.5 %; Neutrophils # (A) 17.16 10*3/uL (1.80-7.70); Neutrophils % (A) 80.2 %; Platelet Count 278 10*3/uL (140-440); RBC 3.95 10*6/uL (4.40-5.60); RDW 13.3 % (11.5-14.5); WBC 21.43 10*3/uL (4.50-10.00)
[2024-10-21 09:03] LABS: HGB 12.4 g/dL (13.0-17.0)
[2024-10-21] MEDS ORDERED: lamoTRIgine 100 MG TAB PO SCH (12:30)
[2024-10-21] MEDS: LAMICTAL 300 MG PO SCH (12:55)
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
[2024-10-21] MEDS: NON FORMULARY DRUG (Clobazam [Clobazam] 10 MG Tablet) PO SCH (21:30)
[2024-10-21] MEDS: diazePAM 2 MG TAB PO SCH (21:33)
[2024-10-21] MEDS: ESCITALOPRAM 10 MG TAB PO SCH (21:33)
[2024-10-21] MEDS: BACLOFEN 10 MG TAB PO SCH (21:33)
[2024-10-22 03:56] LABS: ALT 19 U/L (4-49); AST 32 U/L (17-59); African American GFR (CKD) >90 (>60 ml/min/1.73 sqM); Albumin 2.6 g/dL (3.5-5.0); Albumin/Globulin Ratio 1.2; Alkaline Phosphatase 31 U/L (38-126); Anion Gap 4 mmol/L; Blood Urea Nitrogen 19 mg/dL (9-20); Calcium 8.6 mg/dL (8.4-10.2); Carbon Dioxide 30 mmol/L (22-30); Chloride 106 mmol/L (98-107); Globulin 2.1 g/dL; Glucose 90 mg/dL (74-99); Magnesium 1.7 mg/dL (1.6-2.3); Non-African American GFR(CKD) >90 (>60 ml/min/1.73 sqM); Phosphorus 2.8 mg/dL (2.5-4.5); Potassium 4.4 mmol/L (3.5-5.1); Sodium 140 mmol/L (137-145); Total Bilirubin 0.4 mg/dL (0.2-1.3); Total Protein 4.7 g/dL (6.3-8.2)
[2024-10-22 04:05] LABS: Basophils # (A) 0.04 10*3/uL (0.00-0.10); Basophils % (A) 0.4 %; Eosinophils # (A) 0.16 10*3/uL (0.04-0.35); Eosinophils % (A) 1.7 %; HCT 29.8 % (39.6-50.0); Lymphocytes # (A) 2.25 10*3/uL (0.90-5.00); Lymphocytes % (A) 24.1 %; MCH 31.8 pg (27.0-32.0); MCHC 33.6 g/dL (32.0-37.0); MCV 94.9 fL (80.0-97.0); Mean Platelet Volume 10.2 fL (9.5-12.2); Monocytes # (A) 0.69 10*3/uL (0.20-1.00); Monocytes % (A) 7.4 %; Neutrophils # (A) 6.14 10*3/uL (1.80-7.70); Platelet Count 211 10*3/uL (140-440); RBC 3.14 10*6/uL (4.40-5.60); RDW 13.5 % (11.5-14.5); WBC 9.32 10*3/uL (4.50-10.00)
[2024-10-22] MEDS: BACLOFEN 10 MG TAB PO SCH (06:14)
[2024-10-22] MEDS ORDERED: Magnesium Replacement Protocol 1 EACH MISC MISCELLANE PRN (10:18)
[2024-10-22] MEDS: MAGNESIUM SULFATE-D5W PMX 1 GM in DEXTROSE/WATER 1 100ML.BAG IVPB ONE (10:34)
[2024-10-22] MEDS: IV FLUID CONTINUATION 900 ML IV ONE (13:10)
[2024-10-22] MEDS ORDERED: PROPOFOL 10 MG/ML 20 ML VIAL IV ONE (13:13)
[2024-10-22] MEDS ORDERED: LIDOCAINE 1% INJ 10MG/ML (20 ML MDV) ONE (13:13)
--- NOTE | 2024-10-22 13:24 | P.PCN ---
Date of Procedure: 10/22/24 Procedure(s) Performed: BRIEF HISTORY: Patient is a 39-year-old, pleasant, white male with a history of traumatic brain injury, paraplegia and bedridden was admitted to hospital with fatigue and weakness and had several episodes of nausea vomiting and coffee- ground emesis. Last EGD June 2023 revealed severe reflux esophagitis. He has been on Protonix 40 mg daily. Scheduled for a repeat upper endoscopy because of persistent nausea vomiting and coffee-ground emesis. PROCEDURE PERFORMED: Esophagogastroduodenoscopy with biopsy PREOPERATIVE DIAGNOSIS: Nausea vomiting and coffee-ground emesis. IV sedation per anesthesia. PROCEDURE: After informed consent was obtained, the patient was brought into the endoscopy unit. IV sedation was administered by Anesthesia under continuous monitoring. Initially the Olympus GIF-140 video endoscope was inserted into the mouth. Esophagus intubated without any difficulty. It was gradually advanced into the stomach and duodenum and carefully examined. The bulb and the second part of the duodenum appeared normal. The scope at this time was withdrawn to t he stomach, adequately insufflated with air, and upon careful examination, mucosa of the antrum, body, cardia and the fundus appeared normal. Multiple small gastric polyps noted which were biopsied. The scope was then withdrawn into the esophagus. Small hiatal hernia noted. The GE junction was located at 39 cm from the incisors. There were linear erosions and ulcerations in the distal esophagus consistent with LA grade C reflux esophagitis. Rest of the esophagus appeared normal and the patient tolerated the procedure well. IMPRESSION: 1. Linear erosions or ulcerations in the distal esophagus consistent with LA grade C reflux esophagitis. 2. Small hiatal hernia 3. Gastric polyp status post. RECOMMENDATIONS: The findings of this examination were discussed with the patient as well as his family. He will be continued on Protonix 40 mg twice daily and Pepcid 40 mg at bedtime. Recommend strict antireflux measures. Advance diet as tolerated.
[2024-10-22 17:42] LABS: Influenza A Not Detected (Not Detectd); Influenza B Not Detected (Not Detectd); RSV Not Detected (Not Detectd)
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
[2024-10-23] MEDS: MAGNESIUM SULFATE-D5W PMX 1 GM in DEXTROSE/WATER 1 100ML.BAG IVPB ONE (09:15)
[2024-10-23 11:22] LABS: HCT 26.7 % (39.6-50.0); HGB 9.4 g/dL (13.0-17.0); MCH 32.1 pg (27.0-32.0); MCHC 35.2 g/dL (32.0-37.0); MCV 91.1 fL (80.0-97.0); Mean Platelet Volume 9.3 fL (9.5-12.2); Platelet Count 219 10*3/uL (140-440); RBC 2.93 10*6/uL (4.40-5.60); RDW 13.1 % (11.5-14.5); WBC 7.54 10*3/uL (4.50-10.00)
[2024-10-23 11:39] LABS: African American GFR (CKD) >90 (>60 ml/min/1.73 sqM); Anion Gap 5 mmol/L; Blood Urea Nitrogen 7 mg/dL (9-20); Calcium 8.7 mg/dL (8.4-10.2); Carbon Dioxide 33 mmol/L (22-30); Chloride 101 mmol/L (98-107); Glucose 87 mg/dL (74-99); Non-African American GFR(CKD) >90 (>60 ml/min/1.73 sqM); Potassium 3.3 mmol/L (3.5-5.1); Sodium 139 mmol/L (137-145)
[2024-10-23] MEDS: POTASSIUM CHLORIDE ER 20 MEQ TAB.ER PO STA (12:32)
--- NOTE | 2024-10-23 13:56 | P.PN ---
Subjective Progress Note Date: 10/23/24 Principal diagnosis: Coffee-ground emesis, esophagitis This is a pleasant 39-year-old male with history of traumatic brain injury, paraplegia, seizure disorder, GI bleed and sleep apnea who was brought into the emergency department yesterday for evaluation of increased weakness and fatigue, abdominal pain, and nausea and vomiting with coffee-ground emesis. He has a previous history of couple years ago with coffee-ground emesis. At that time he underwent an upper endoscopy in June [address] Smith with findings of linear erosions, superficial ulcer at the GE junction consistent with LA grade B reflux esophagitis, no peptic ulcer disease noted. No active bleeding noted at that time. Currently patient is lying in bed he appears quite lethargic. He is not very involved in HPI. Patient's caretakers at the bedside states that Sunday patient had 1 episode of emesis. Nonbloody. Sunday he had a really good day and then yesterday he was very lethargic and was complaining of abdominal pain and not feeling well. He was brought in for further evaluation. He was noted to have leukocytosis. He has been afebrile. After eating breakfast this morning he had a large emesis with a large amount of coffee ground emesis. He also had a 3 g drop in his hemoglobin from yesterday until today. States that he has some left lower quadrant pain. He has not had any further emesis. Caregiver states that he has bowel movements every 2 to 3 days. He has not noticed any black stool or bright red blood. Patient does take Protonix 40 mg twice a day at home. He had a CT of the abdomen pelvis with contrast that reported no suspicious acute changes. 10/23/2024 Patient seen and examined today as a follow-up. His caregiver remains at the bedside. He is more awake and alert today. He denies any abdominal pain. He has not had any further coffee-ground emesis. Yesterday he underwent upper endoscopy with findings of linear erosions or ulcerations in the distal esophagus consistent with LA grade C reflux esophagitis, small hiatal hernia gastric polyp status post biopsy. Hemoglobin overall stable with a slight drop from 10.0-9.4, Which can be expected. Objective - Vital Signs Vital signs: Vital Signs Temp 99.4 F 10/23/24 09:16 Pulse 113 H 10/23/24 07:40 Resp 18 10/23/24 07:40 BP 109/61 10/23/24 07:40 Pulse Ox 92 L 10/23/24 07:40 FiO2 Intake & Output 10/22/24 10/23/24 10/23/24 18:59 06:59 18:59 Intake Total 300 200 Balance 300 200 Intake: IV 300 Oral 200 Other: # Voids 2 2 1 - Exam General appearance: The patient is alert, oriented, appears in no acute distress. HET: Head is normocephalic and atraumatic. Conjunctiva pink. Sclera anicteric. Neck: Supple without lymphadenopathy. Abdomen: Soft, nontender, nondistended. Extremities: Normal skin color and turgor. No pedal edema Skin: No rashes, no jaundice Neurological: Cognitive delay secondary to TBI. Alert and oriented. - Labs CBC & Chem 7: 10/23/24 10:59 10/23/24 10:59 Labs: Microbiology - Last 24 Hours (Table) 10/21/24 15:00 Urine Culture - Final Urine,Voided 10/21/24 07:29 Blood Culture - Preliminary Blood Assessment and Plan (1) Coffee ground emesis Narrative/Plan: 39-year-old male with history of traumatic brain injury seizure disorder and previous GI bleed with evaluation with upper endoscopy in June 2022 with findings of LA grade B reflux esophagitis, no active bleeding and no peptic ulcer. Recommendation was Protonix 40 mg twice a day. Patient has remained on his PPI but is having recurrent episode of coffee-ground emesis with a 3 g drop in his hemoglobin. This may be secondary to his reflux esophagitis however need to consider possible other etiologies. Status post upper endoscopy with LA grade C reflux esophagitis, hiatal hernia and gastric polyp. Coffee-ground emesis and anemia likely secondary to severe esophagitis. Avoid NSAIDs and continue Protonix 40 mg twice daily and will add Pepcid 20 mg at at bedtime. Antireflux measures discussed with caregiver and patient sister Current Visit: No Status: Acute Code(s): K92.0 - HEMATEMESIS SNOMED Co de(s): 62392136 (2) Leukocytosis Narrative/Plan: Resolved Current Visit: Yes Status: Acute Code(s): D72.829 - ELEVATED WHITE BLOOD CELL COUNT, UNSPECIFIED SNOMED Code(s): 753885855 (3) Fatigue Current Visit: Yes Status: Acute Code(s): R53.83 - OTHER FATIGUE SNOMED Code(s): 41518692 (4) Abdominal pain Current Visit: Yes Status: Acute Code(s): R10.9 - UNSPECIFIED ABDOMINAL PAIN SNOMED Code(s): 19523363 (5) History of closed head injury Current Visit: Yes Status: Acute Code(s): Z87.820 - PERSONAL HISTORY OF TRAUMATIC BRAIN INJURY SNOMED Code(s): 99341728463720 (6) Weakness Current Visit: Yes Status: Acute Code(s): R53.1 - WEAKNESS SNOMED Code(s): 50232799 Plan: 1. Continue symptomatic and supportive care 2. Regular diet 3. Protonix 40 mg twice daily, will add Pepcid 20 mg at bedtime 4. Avoid NSAIDs 5. Patient is status post upper endoscopy, findings discussed with patient, patient's caregiver and his sister Lola. 6. Discussed importance of following antireflux measures 7. Repeat CBC today, if stable patient is cleared from gastroenterology for discharge. Discussed with patient's sister that if patient has further bleeding can consider small bowel capsule endoscopy. However likely acute blood loss anemia secondary to esophagitis. Thank you for this consultation, we will continue to follow. Dr. Mai Encarnacion I agree with the dictator's note, documented as a scribe by Maria Elena BLANCO .
[2024-10-23 14:15] VITALS: BP 135/76; PULSE 111; RESP 17; TEMP 99.8
[2024-10-23 15:24] LABS: % Iron Saturation 6.71 (15.00-50.00)
[2024-10-23] MEDS ORDERED: FAMOTIDINE 20 MG TAB PO SCH (21:00)
== END 2024-10-23 15:30 | disposition home or self-care (01) | DRG 381 ==
LOC: EC 21:45 → 4SSUR 10-21 00:10
PROVIDERS: ADMIT Hospitalist; ATTEND Hospitalist
PROC: 0DB68ZX Excision of Stomach, Via Natural or Artificial Opening Endoscopic, Diagnostic (ICD-10-PCS; principal; 2024-10-22 13:20)
PROC: 0DB38ZX Excision of Lower Esophagus, Via Natural or Artificial Opening Endoscopic, Diagnostic (ICD-10-PCS; principal; 2024-10-22 13:20)
DX: K22.11 Ulcer of esophagus with bleeding (principal); D62 Acute posthemorrhagic anemia; G40.409 Other generalized epilepsy and epileptic syndromes, not intractable, without status epilepticus; G82.20 Paraplegia, unspecified; F32.A Depression, unspecified; K21.00 Gastro-esophageal reflux disease with esophagitis, without bleeding; K44.9 Diaphragmatic hernia without obstruction or gangrene; K31.7 Polyp of stomach and duodenum; D72.829 Elevated white blood cell count, unspecified; G47.30 Sleep apnea, unspecified; M62.838 Other muscle spasm; R13.10 Dysphagia, unspecified; E86.0 Dehydration; R32 Unspecified urinary incontinence; Z79.899 Other long term (current) drug therapy; Z74.01 Bed confinement status; Z87.820 Personal history of traumatic brain injury; Z87.828 Personal history of other (healed) physical injury and trauma; Z88.0 Allergy status to penicillin; Z88.2 Allergy status to sulfonamides
CPT/HCPCS: 36415; 43239; 71045; 74018; 74177; 80048; 80053; 80175; 81003; 82728; 83540; 83550; 83605; 83735; 84100; 84145; 84484; 85025; 85027; 85610; 85730; 87040; 87086; 87636; 88305; 88312; 93005; 96361; 96374; 99285